=== PATIENT | female | born 1950 | race Caucasian/White ===

== ENCOUNTER 2024-02-11 10:49 | Inpatient (IN) | payer MEDICARE, SELFPAY ==
[2024-02-11] VITALS (19 sets, daily range): BP systolic 107–169; BP diastolic 65–106; PULSE 80–128; RESP 18–28; TEMP 36.1–37.9; O2SAT 89–98; BMI 18.6
--- NOTE | 2024-02-11 11:04 | ED.SOB ---
HPI - SOB/Dyspnea General Chief Complaint: Shortness of Breath/Dyspnea Stated Complaint: lung covid since october, can't get better Time Seen by Provider: 02/11/24 10:59 History of Present Illness HPI Narrative: Patient is a 73-year-old female who has history of non-Hodgkin's lymphoma treated with chemo in remission, celiac disease, connective tissue disease, was diagnosed with COVID in October. She thinks that she has long COVID. She has never fully recovered. She has daily fevers up to 100.8. She is hypoxic with exertion she has a pulse oximeter at home and reports that she has 89% with exertion. She reports that she has muscle wasting chronic fatigue she is lost weight. She has been on 2 rounds of antibiotics azithromycin and amoxicillin separately reports she got a little better but never fully recovered. He has been [place] [facility] handful of times. Today she reports that her fatigue is worse she continues to have fever she is mild hypoxic at 90% in the ED. Denies that any CT scan was done for her. She denies any abdominal pain nausea or vomiting. She has no chest pain. Z-Vinay and prednisone started on January 26 Related Data Home Medications Medication Instructions Recorded Confirmed hydroxychloroquine 200 mg tablet 300 mg PO DAILY 02/11/24 02/11/24 Allergies Allergy/AdvReac Type Severity Reaction Status Date / Time meperidine [From Demerol] Allergy Rash Verified 02/11/24 13:05 Sulfa (Sulfonamide Allergy Rash Verified 02/11/24 13:05 Antibiotics) Patient History Medical History (Updated 02/11/24 @ 17:32 by Gloria Hyde RN) Ribs, multiple fractures COPD (chronic obstructive pulmonary disease) Non-Hodgkin lymphoma Adult celiac disease COVID Mixed connective tissue disease Social History household members: family and children Smoking Status: Never smoker alcohol intake: never substance use type: does not use Exam Initial Vital Signs Initial Vital Signs: Vital Signs Pulse Oximetry 89 L 02/11/24 10:56 Oxygen Delivery Method Room Air 02/11/24 10:56 GENERAL: Thin alert 73-year-old female HEENT: Head atraumatic,EOMI, pupils reactive, face symmetric, moist mucous membranes CARDIOVASCULAR: Tachycardic regular no murmur RESPIRATORY: No conversational dyspnea no wheezes rales or rhonchi ABDOMEN: Soft, nontender. Normoactive bowel sounds all 4 quadrants. No guarding or rebound. EXTREMITIES: Normal range of motion, no clubbing or edema. Neurovascularly intact NEUROLOGICAL: Alert and oriented x4.Normal gait and speech. SKIN: Warm, dry, no laceration, no petechiae, no rashes or lesions. Course Orders Ordered: ED Orders 02/11/24 11:04 XR chest 1V Stat EKG-12 Lead Stat 02/11/24 11:17 Respiratory Panel (Film Array) Stat 02/11/24 11:18 BNP [NT-proBNP (BNP-Adult 18+)] Stat Complete Blood Count AUTO DIFF Stat Comprehensive Metabolic Panel Stat Lactate (Lactic Acid) Stat Procalcitonin Stat Troponin & CK Cardiac Panel Stat 02/11/24 11:27 CT angio chest PE protocol Stat 02/11/24 12:00 Sputum Culture Stat 02/11/24 12:07 Blood Culture Stat 02/11/24 13:45 Urinalysis and Microscopic Stat Acetaminophen (Acetaminophen 325 Mg Tablet) 650 mg PO Q6H PRN PRN Reason: Fever/Mild Pain (1-3) Last Admin: 02/11/24 16:20 Dose: 650 mg Documented By: FARIHA Albuterol (Albuterol 2.5 Mg/3 Ml Neb (Adult)) 2.5 mg INH [id number] VERONICA Last Admin: 02/11/24 16:43 Dose: 2.5 mg Documented By: LORI Albuterol (Albuterol 2.5 Mg/3 Ml Neb (Adult)) 2.5 mg INH [id number] PRN PRN Reason: Shortness Of Breath Budesonide (Budesonide 0.5 Mg/2 Ml Neb) 0.5 mg INH RTBID VERONICA Enoxaparin Sodium (Enoxaparin 40 Mg/0.4 Ml Syringe) 40 mg SUBCUT DAILY [facility] Guaifenesin (Guaifenesin Er 600 Mg Tab) 600 mg PO BID VERONICA Last Admin: 02/11/24 16:21 Dose: 600 mg Documented By: FARIHA Guaifenesin/Codeine Phosphate (Codeine/Guaifenesin Liquid 5ml Udc) 10 ml PO Q6H PRN PRN Reason: Cough Last Admin: 02/11/24 16:20 Dose: 10 ml Documented By: FARIHA Ceftriaxone Sodium 1,000 mg/ (Sodium Chloride) 100 mls @ 200 mls/hr IV Q24H VERONICA Stop: 02/16/24 12:59 Azithromycin 500 mg/ Dextrose 250 mls @ 250 mls/hr IV Q24H VERONICA Stop: 02/14/24 13:59 Naloxone HCl (Naloxone 0.4 Mg/Ml Vial) 0.2 mg IV Q2MIN PRN PRN Reason: Opiate Reversal Ondansetron HCl (Ondansetron 4 Mg/2 Ml Inj) 4 mg IV Q4HR PRN PRN Reason: Nausea And Vomiting Last Admin: 02/11/24 16:28 Dose: 4 mg Documented By: FARIHA Prednisone (Prednisone 20 Mg Tablet) 40 mg PO DAILY [facility] Stop: 02/16/24 08:59 Discontinued Medications Sodium Chloride (Normal Saline 0.9%) 1,524.06 mls @ 508.02 mls/hr 30 ml/kg infuse over 3 hr (1524.06 ml) IV NOW ONE Stop: 02/11/24 14:26 Last Infusion: 02/11/24 13:40 Dose: Infused Documented By: Admin: 02/11/24 11:32 Dose: 508.02 mls/hr Documented By: Ceftriaxone Sodium 2,000 mg/ (Sodium Chloride) 100 mls @ 200 mls/hr IV NOW ONE Stop: 02/11/24 13:01 Last Infusion: 02/11/24 14:04 Dose: Infused Documented By: Admin: 02/11/24 13:09 Dose: 200 mls/hr Documented By: Azithromycin 500 mg/ Dextrose 250 mls @ 250 mls/hr IV NOW ONE Stop: 02/11/24 13:01 Last Infusion: 02/11/24 15:22 Dose: Infused Documented By: Admin: 02/11/24 14:12 Dose: 250 mls/hr Documented By: KERRY Ondansetron HCl (Ondansetron 4 Mg/2 Ml Inj) 4 mg IV Q8HR PRN PRN Reason: Nausea And Vomiting Prednisone (Prednisone 20 Mg Tablet) 40 mg PO NOW ONE Stop: 02/11/24 15:51 Last Admin: 02/11/24 16:21 Dose: 40 mg Documented By: FARIHA Vital Signs Vital signs: Vital Signs - 8 hr 02/11/24 10:56 02/11/24 10:57 02/11/24 10:57 Temperature Pulse Rate 124 H Respiratory Rate Blood Pressure 140/88 Pulse Oximetry 89 L 90 L Oxygen Delivery Method Room Air Room Air 02/11/24 11:00 02/11/24 11:00 02/11/24 11:08 Temperature 100.2 F H Pulse Rate 122 H 121 H Respiratory Rate 25 H Blood Pressure 153/93 H 140/88 Pulse Oximetry 93 90 L Oxygen Delivery Method Room Air Room Air 02/11/24 11:30 02/11/24 11:30 02/11/24 11:55 Temperature Pulse Rate 113 H 128 H Respiratory Rate 18 20 Blood Pressure 168/87 H 146/106 H Pulse Oximetry 93 94 Oxygen Delivery Method Room Air 02/11/24 12:00 02/11/24 12:00 02/11/24 12:34 Temperature Pulse Rate 116 H 116 H Respiratory Rate 20 Blood Pressure 160/85 H Pulse Oximetry 94 95 Oxygen Delivery Method 02/11/24 12:35 02/11/24 12:35 02/11/24 13:00 Temperature Pulse Rate 115 H Respiratory Rate 20 Blood Pressure 145/81 H 169/92 H Pulse Oximetry 94 Oxygen Delivery Method 02/11/24 13:00 02/11/24 13:30 02/11/24 13:30 Temperature Pulse Rate 107 H 113 H Respiratory Rate 21 21 Blood Pressure 160/91 H Pulse Oximetry 96 94 Oxygen Delivery Method 02/11/24 13:42 02/11/24 13:42 02/11/24 14:00 Temperature Pulse Rate 122 H 117 H Respiratory Rate 28 H 20 Blood Pressure 155/89 H Pulse Oximetry 90 L 93 Oxygen Delivery Method 02/11/24 14:00 Temperature Pulse Rate Respiratory Rate Blood Pressure 152/91 H Pulse Oximetry Oxygen Delivery Method MDM - SOB/Dyspnea Lab Data 02/11/24 11:18 02/11/24 11:18 Labs: Lab Results 02/11/24 02/11/24 02/11/24 Range/Units 11:17 11:18 13:45 WBC 14.3 H (4.5-11.0) X10^3/uL RBC 3.38 L (4.0-5.2) X10^6/uL Hgb 10.2 L (12.0-16.0) g/dL Hct 30.5 L (36-46) % MCV 90.1 (80-100) fL MCH 30.2 (26-34) PG MCHC 33.5 (30-36) % RDW 16.0 H (11.6-14.8) % Plt Count 963 H* (150-400) X10^3/uL Neut % (Auto) 76.5 H (50-75) % Lymph % (Auto) 14.9 L (25-40) % [place] % (Auto) 7.0 (3-14) % Eos % (Auto) 0.1 L (2-4) % Baso % (Auto) 1.5 (0-2) % Neut # (Auto) 68239 H (8252-4632) /uL Lymph # (Auto) 2100 (0463-5684) /uL Avery # (Auto) 1000 H (0-900) /uL Eos # (Auto) 0 (0-450) /uL Baso # (Auto) 200 H (0-100) /uL Platelet Estimate Increased on smear RBC Morphology Normal morphology Sodium 132 L (137-145) mmol/L Potassium 3.9 (3.4-5.1) mmol/L Chloride 97 L (98-107) mmol/L Carbon Dioxide 28 (22-32) mmol/L BUN 7 (7-17) mg/dL Creatinine 0.51 L (0.52-1.04) mg/dL Estimated GFR > 60 (>60) mL/min BUN/Creatinine Ratio 13.7 (6-22) Glucose 131 H (80-110) mg/dL Lactate 1.3 (0.7-2.1) mmol/L Calcium 8.9 (8.4-10.2) mg/dL Total Bilirubin 0.7 (0.2-1.3) mg/dL AST 31 (14-36) IU/L ALT 20 (<35) IU/L Alkaline Phosphatase 148 H (38-126) U/L Total Creatine Kinase 40 (30-135) U/L Troponin I < 0.012 (0.01-0.034) ng/mL NT-Pro-B Natriuret Pep 131 H (<125) pg/mL Total Protein 7.2 (6.3-8.2) g/dL Albumin 3.9 (3.5-5.0) g/dL Globulin 3.3 (1.7-4.1) g/dL Albumin/Globulin Ratio 1.2 (1.0-2.8) Procalcitonin 0.126 (<0.5) ng/mL Urine Color Yellow Urine Appearance Clear Urine pH 8.0 (4.5-8.0) Ur Specific [place] 1.015 (1.000-1.035) Urine Protein Negative (Negative) Urine Glucose (UA) Negative (Negative) g/dL Urine Ketones Trace H (NEGATIVE) Urine Occult Blood Negative (Negative) Urine Nitrate Negative (Negative) Urine Bilirubin Negative (NEGATIVE) Urine Urobilinogen 0.2 (0.2) E.U./dL Ur Leukocyte Esterase Negative (NEGATIVE) Urine RBC None seen (0-5/HPF) Urine WBC None seen (0-5/HPF) Ur Squamous Epith Cells None seen (0-5/HPF) Amorphous Sediment 3+ Urine Bacteria Occasional (0-1) (None) Ur Culture Indicated? Cult not indicated Vol Urine Centrifuged 10ml (spun) Chlamy pneumoniae PCR Not detected (Not Detect) Adenovirus (PCR) Not detected (Not Detect) B.parapertussis DNA PCR Not detected (Not Detecte) Coronavirus OC43 (PCR) Not detected (Not Detect) Coronavirus HKU1 (PCR) Not detected (Not Detect) Coronavirus 229E (PCR) Not detected (Not Detect) SARS-CoV-2 (PCR) Not detected (Not Detecte) Coronavirus NL63 (PCR) Not detected (Not Detect) Human Metapneumovir PCR Detected H (Not Detect) Influenza Type A (PCR) Not detected (Not Detect) Influenza Type B (PCR) Not detected (Not Detect) M. pneumoniae (PCR) Not detected (Not Detect) Parainfluenza 1 (PCR) Not detected (Not Detect) Parainfluenza 2 (PCR) Not detected (Not Detect) Parainfluenza 3 (PCR) Not detected (Not Detect) Parainfluenza 4 (PCR) Not detected (Not Detect) RSV (PCR) Not detected (Not Detect) Entero/Rhino (PCR) Not detected (Not Detect) Urine Dip Bedside Urine Glucose Negative Bedside Urine Bilirubin - Negative Bedside Urine Ketone - Negative Urine Specific [place] 1.010 Bedside Urine Occult Blood - Negative Bedside Urine pH 8.5 Bedside Urine Protein - Negative Bedside Urine Urobilinogen - Negative Bedside Urine Nitrite - Negative Bedside Urine Leukocytes - Negative Esterase Imaging Data Chest x-ray: Radiologist's Impression: PROCEDURE: XR CHEST 1V INDICATIONS: cough TECHNIQUE: One view of the chest was acquired. COMPARISON: None. FINDINGS: Surgical changes and devices: None. Lungs and pleura: Patchy bibasilar lung consolidation. No pleural effusions or pneumothorax. Mediastinum: Mediastinal contours appear normal. Heart size is normal. Bones and chest wall: No suspicious bony lesions. Overlying soft tissues appear unremarkable. IMPRESSION: Bibasilar pneumonia. Dictated by: Ysabel Christianson MD, PhD on 02/11/2024 at 12:04 CT scan - chest: Radiologist's Impression: PROCEDURE: CT ANGIO CHEST PE PROTOCOL INDICATIONS: hypoxia fever TECHNIQUE: After the administration of intravenous contrast, 2 mm thick sections acquired from the pulmonary apices to the posterior costophrenic angles. 3-dimensional maximum intensity projection (MIP) coronal and sagittal reformats were then acquired through the thorax. For radiation dose reduction, the following was used: automated exposure control, adjustment of mA and/or kV according to patient size. COMPARISON: None. FINDINGS: Image quality: Diagnostic. Pulmonary arteries: Pulmonary arteries are normal in size, and demonstrate no intraluminal filling defects to suggest central pulmonary embolism. Lower Neck: No enlarged lymph nodes. Thyroid: No thyroid nodules which require sonographic follow up, per consensus guidelines. Axillae: No enlarged lymph nodes. Chest Wall: Unremarkable. Bones: Spine degenerative disc disease and facet arthropathy. Chronic T10, T11 and T12 compression fractures. No acute compression fracture. Schmorl's nodes in the superior endplates of the T7 and T9 vertebral bodies. Subacute anterior right 3rd, 4th, 5th and 6th rib fractures. Lungs and Pleura: No pneumothorax or pleural effusions. Patchy bibasilar lung consolidation. A few small air-fluid levels identified in several left lower lobe bronchials. Heart: Heart size is normal. Atherosclerotic calcifications in the coronary vasculature. No pericardial effusion. Thoracic Vessels: No aortic aneurysm. Mediastinum and Ruthann: No enlarged lymph nodes. Esophagus: No wall thickening. No hiatal hernia. Upper Abdomen: No acute disease process in the visualized abdomen. Coarse right adrenal calcifications which could be related to prior hemorrhage or infection. IMPRESSION: No pulmonary embolus or aortic dissection. Bibasilar pneumonia or aspiration. Mildly enlarged bilateral hilar and mediastinal lymph nodes which could be reactive or neoplastic. Subacute right 3rd, 4th, 5th and 6th rib fractures. Dictated by: Ysabel Christianson MD, PhD on 02/11/2024 at 12:58 Approved by: Ysabel Christianson MD, PhD on 02/11/2024 at 13:0 ECG Data Attestation: I personally reviewed and interpreted this ECG as follows: Prior ECG tracings: not available for review Interpretation: Sinus tachycardia rate 115 MO interval 130 QRS [address] changes MDM Narrative Medical decision making narrative: MDM CC: Fever Complicating co-morbidities: History of non-Hodgkin's lymphoma Corroborating data: [ ] Data collected from: [ ] Medical records reviewed: All records from would be walk-in clinic reviewed. She is noted to be tachycardic in the 118 range oxygen level is 95-97% on room air. She has been on azithromycin in December Differential considered: Pulmonary embolism pneumonia cancer Exam documented above, pertinent findings include: Thin female no conversational dyspnea or respiratory distress tachycardic breath sounds are clear Lab Test results independently reviewed as above. Pertinent findings: WBC 14.3 hemoglobin 10.2, 30.5, platelets 963, sodium 132 potassium 3.9 chloride 97 carbon dioxide 28 BUN 7 creatinine 0.5 glucose 131 lactate 1.3, bili 0.7, AST 31, ALT 20 alk-phos 148, troponin negative BNP 131, procalcitonin 0.16 Viral panel positive for human metapneumovirus Independently reviewed EKG as above sinus tachycardia Imaging studies independently reviewed: Chest x-ray shows bibasilar pneumonia, CT no pulmonary embolism with enlarged lymph nodes could be reactive versus neoplastic, also multiple subacute rib fractures Consultations: Dr. Marley, in ED dizzy and evaluate patient admits patient Treatments: IV fluids, Rocephin azithromycin, sepsis fluids Re-evaluations: Heart rate has improved at rest she has not hypoxic not requiring O2 but remains tachycardic Discussion: Patient presents today with ongoing fever shortness of breath and worsening symptoms. She again is febrile hypoxic and tachycardic here in the ED. She is positive for human metapneumovirus along with bibasilar pneumonia on both on CT and x-ray. She is not hypotensive no evidence of shock. She does have mild leukocytosis 14.3 with elevated platelets of 963. Patient has been on outpatient antibiotics but not combination of penicillin and a macrolide together. She has been on prednisone she has history of asthma and possibly long COVID. She has not yet been evaluated by pulmonology or any other position. At this time with ongoing pneumonia fever tachycardia exertional dyspnea Admitted to inpatient. Discharge Plan Departure Patient Disposition: Admitted As Inpatient Clinical Impression: Pneumonia Admit Date/Time: 02/11/24 14:14 Admit Provider: Hero Marley
--- NOTE | 2024-02-11 11:27 | DI.CT.S_ITS ---
PROCEDURE: CT ANGIO CHEST PE PROTOCOL INDICATIONS: hypoxia fever TECHNIQUE: After the administration of intravenous contrast, 2 mm thick sections acquired from the pulmonary apices to the posterior costophrenic angles. 3-dimensional maximum intensity projection (MIP) coronal and sagittal reformats were then acquired through the thorax. For radiation dose reduction, the following was used: automated exposure control, adjustment of mA and/or kV according to patient size. COMPARISON: None. FINDINGS: Image quality: Diagnostic. Pulmonary arteries: Pulmonary arteries are normal in size, and demonstrate no intraluminal filling defects to suggest central pulmonary embolism. Lower Neck: No enlarged lymph nodes. Thyroid: No thyroid nodules which require sonographic follow up, per consensus guidelines. Axillae: No enlarged lymph nodes. Chest Wall: Unremarkable. Bones: Spine degenerative disc disease and facet arthropathy. Chronic T10, T11 and T12 compression fractures. No acute compression fracture. Schmorl's nodes in the superior endplates of the T7 and T9 vertebral bodies. Subacute anterior right 3rd, 4th, 5th and 6th rib fractures. Lungs and Pleura: No pneumothorax or pleural effusions. Patchy bibasilar lung consolidation. A few small air-fluid levels identified in several left lower lobe bronchials. Heart: Heart size is normal. Atherosclerotic calcifications in the coronary vasculature. No pericardial effusion. Thoracic Vessels: No aortic aneurysm. Mediastinum and Ruthann: No enlarged lymph nodes. Esophagus: No wall thickening. No hiatal hernia. Upper Abdomen: No acute disease process in the visualized abdomen. Coarse right adrenal calcifications which could be related to prior hemorrhage or infection. IMPRESSION: No pulmonary embolus or aortic dissection. Bibasilar pneumonia or aspiration. Mildly enlarged bilateral hilar and mediastinal lymph nodes which could be reactive or neoplastic. Subacute right 3rd, 4th, 5th and 6th rib fractures. Dictated by: Ysabel Christianson MD, PhD on 02/11/2024 at 12:58 Approved by: Ysabel Christianson MD, PhD on 02/11/2024 at 13:05
[2024-02-11 11:30] LABS: Add Manual Diff / Slide Review NO; Basophils Absolute Auto 200 /uL (0-100); Basophils Percent Auto 1.5 % (0-2); Eosinophils Absolute Auto 0 /uL (0-450); Eosinophils Percent Auto 0.1 % (2-4); Hematocrit 30.5 % (36-46); Hemoglobin 10.2 g/dL (12.0-16.0); Lymphocytes Absolute Auto 2100 /uL (1100-4500); Lymphocytes Percent Auto 14.9 % (25-40); Mean Corpuscular HGB Conc 33.5 % (30-36); Mean Corpuscular Hemoglobin 30.2 PG (26-34); Mean Corpuscular Volume 90.1 fL (80-100); Monocytes Absolute Auto 1000 /uL (0-900); Neutrophils Absolute Auto 10900 /uL (1500-7000); Neutrophils Percent Auto 76.5 % (50-75); Red Blood Cell Count 3.38 X10^6/uL (4.0-5.2); White Blood Cell Count 14.3 X10^3/uL (4.5-11.0)
[2024-02-11 11:31] LABS: Platelet Count 963 X10^3/uL (150-400)
--- NOTE | 2024-02-11 11:31 | EKG_ITS ---
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
[2024-02-11] MEDS: SODIUM CHLORIDE 0.9% 508.02 ML IV (11:32)
[2024-02-11 11:54] LABS: Lactate (Lactic Acid) 1.3 mmol/L (0.7-2.1)
[2024-02-11 11:55] LABS: Alanine Aminotransferase 20 IU/L (<35); Albumin 3.9 g/dL (3.5-5.0); Albumin Globulin Ratio 1.2 (1.0-2.8); Alkaline Phosphatase 148 U/L (38-126); Aspartate Aminotransferase 31 IU/L (14-36); BUN Creatinine Ratio 13.7 (6-22); Bilirubin Total 0.7 mg/dL (0.2-1.3); Blood Urea Nitrogen 7 mg/dL (7-17); Calcium 8.9 mg/dL (8.4-10.2); Carbon Dioxide 28 mmol/L (22-32); Chloride 97 mmol/L (98-107); Creatine Kinase 40 U/L (30-135); Estimated Glomerular Filt Rate > 60 mL/min (>60); Globulin 3.3 g/dL (1.7-4.1); Glucose 131 mg/dL (80-110); HEMOLYSIS < 15 (0-50); Potassium 3.9 mmol/L (3.4-5.1); Sodium 132 mmol/L (137-145); Total Protein 7.2 g/dL (6.3-8.2)
[2024-02-11 12:07] LABS: NT-proBNP (BNP-Adult 18+) 131 pg/mL (<125); Troponin I < 0.012 ng/mL (0.01-0.034)
[2024-02-11 12:11] LABS: Procalcitonin 0.126 ng/mL (<0.5)
[2024-02-11 12:12] LABS: Platelet Estimate Increased on smear; RBC Morphology Normal Morphology
[2024-02-11 12:17] LABS: Adenovirus Not Detected (Not Detect); B. parapertussis Not Detected (Not Detecte); Bordetella pertussis Not Detected (Not Detect); Chlamydophila pneumoniae Not Detected (Not Detect); Coronavirus 229E Not Detected (Not Detect); Coronavirus HKU1 Not Detected (Not Detect); Coronavirus NL 63 Not Detected (Not Detect); Coronavirus OC43 Not Detected (Not Detect); Human Metapneumovirus Detected (Not Detect); Human Rhinovirus/Enterovirus Not Detected (Not Detect); Influenza A Not Detected (Not Detect); Influenza B Not Detected (Not Detect); Mycoplasma pneumoniae Not Detected (Not Detect); Parainfluenza Virus 1 Not Detected (Not Detect); Parainfluenza Virus 2 Not Detected (Not Detect); Parainfluenza Virus 3 Not Detected (Not Detect); Parainfluenza Virus 4 Not Detected (Not Detect); Respiratory Syncytial Virus Not Detected (Not Detect); SARS- CoV-2 Not Detected (Not Detecte)
[2024-02-11] MEDS: cefTRIAXone 2,000 MG in SODIUM CHLORIDE 0.9% 100 ML 200 MG IV (13:09)
[2024-02-11 13:56] LABS: Appearance Urine UA CLEAR; Bilirubin Urine UA NEGATIVE (NEGATIVE); Color Urine UA YELLOW; Glucose Urine UA NEGATIVE (Negative); Ketones Urine UA TRACE (NEGATIVE); Leukocyte Esterase Urine UA NEGATIVE (NEGATIVE); Nitrite Urine UA NEGATIVE (Negative); Occult Blood Urine UA NEGATIVE (Negative); Protein Urine UA NEGATIVE (Negative); Specific Gravity Urine UA 1.015 (1.000-1.035); Urobilinogen Urine UA 0.2 E.U./dL (0.2)
[2024-02-11] MEDS: AZITHROMYCIN 500 MG in DEXTROSE 5% IN WATER 250 ML 250 MG IV (14:12)
[2024-02-11 14:13] LABS: RBC Urine None Seen (0-5/HPF); Urine Volume 10mL (spun); WBC Urine None Seen (0-5/HPF)
[2024-02-11 14:14] LABS: Amorphous Sediment Urine 3+; Bacteria Urine Occasional (0-1); Culture Indicated Urine Cult Not Indicated; Squamous Epithelial Cell Urine None Seen (0-5/HPF)
--- NOTE | 2024-02-11 14:26 | PM.HP.1 ---
History of Present Illness History of Present Illness Date Patient Seen: 02/11/24 Time Patient Seen: 14:26 Chief complaint: lung covid since october, can't get better Narrative: This is a 73 year old female with PMH of mixed connective tissue disease, non-hodgkins lymphoma who presents to the ER with worsening dyspnea on exertion. Her symptoms have been ongoing for about the past 3-4 months. She thinks it started with an upper respiratory illness a few months ago, which never improved and has only continued to progress. She never tested positive for COVID that she remembers. 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 She reports ongoing fever for months, but no joint swelling, chest pain. She does feel a bit worse lying flat. Denies LE edema. She has lost about 10 lbs recently due to loss of appetite and nausea. She has been coughing so hard that she broke multiple ribs on her R side. There is little change in her cough, maybe a bit worse the last few days, and remains constant and producitve of light green sputum intermittently. She denies any pets in her home or previously known allergies. She may have mold in her home but is not sure. In the emergency room, she desaturated to the upper 90s with exertion, which patient states has been somewhat chronic for her. She had low grade elevated temp to 100.2. CT angio showed no PE, some diffuse consolidations in bilateral lungs. Resp. panel was positive for human metapneumovirus. UA was negative for infection. Procalcitonin was 0.126, troponin negative, proBNP 131. ABG showed a respiratory alkalosis with pH of 7.54 with PCO2 of 27. pO2 was 77 on room air. [facility] Medical History Mixed connective tissue disease Social History household members: family and children Smoking Status: Never smoker alcohol intake: never substance use type: does not use Meds Home Medications and Allergies Home Medications Medication Instructions Recorded Confirmed Type hydroxychloroquine 200 mg tablet 300 mg PO DAILY 02/11/24 02/11/24 History Allergies Allergy/AdvReac Type Severity Reaction Status Date / Time meperidine [From Demerol] Allergy Rash Verified 02/11/24 13:05 Sulfa (Sulfonamide Allergy Rash Verified 02/11/24 13:05 Antibiotics) Review of Systems Review of Systems Narrative: All other systems reviewed with the patient and are negative unless otherwise stated. Exam Vital Signs (past 8 hours): - 02/11/24 10:56 02/11/24 10:57 02/11/24 10:57 Temperature Pulse Rate 124 H Respiratory Rate Blood Pressure 140/88 Pulse Oximetry 89 L 90 L Oxygen Delivery Method Room Air Room Air 02/11/24 11:00 02/11/24 11:00 02/11/24 11:08 Temperature 100.2 F H Pulse Rate 122 H 121 H Respiratory Rate 25 H Blood Pressure 153/93 H 140/88 Pulse Oximetry 93 90 L Oxygen Delivery Method Room Air Room Air 02/11/24 11:30 02/11/24 11:30 02/11/24 11:55 Temperature Pulse Rate 113 H 128 H Respiratory Rate 18 20 Blood Pressure 168/87 H 146/106 H Pulse Oximetry 93 94 Oxygen Delivery Method Room Air 02/11/24 12:00 02/11/24 12:00 02/11/24 12:34 Temperature Pulse Rate 116 H 116 H Respiratory Rate 20 Blood Pressure 160/85 H Pulse Oximetry 94 95 Oxygen Delivery Method 02/11/24 12:35 02/11/24 12:35 02/11/24 13:00 Temperature Pulse Rate 115 H Respiratory Rate 20 Blood Pressure 145/81 H 169/92 H Pulse Oximetry 94 Oxygen Delivery Method 02/11/24 13:00 02/11/24 13:30 02/11/24 13:30 Temperature Pulse Rate 107 H 113 H Respiratory Rate 21 21 Blood Pressure 160/91 H Pulse Oximetry 96 94 Oxygen Delivery Method 02/11/24 13:42 02/11/24 13:42 Temperature Pulse Rate 122 H Respiratory Rate 28 H Blood Pressure 155/89 H Pulse Oximetry 90 L Oxygen Delivery Method Oxygen Delivery Method Room Air Narrative Exam Narrative: General:? Patient is thin, mildly ill appearing female, fatigued, mildly dyspnic and coughing. HEENT:? Normocephalic, atraumatic, extraocular muscles intact, oral pharynx is clear and mucous membranes are moist. Neck: supple and symmetric, trachea is midline, no cervical adenopathy. Chest:? Normal AP diameter and contour without kyphoscoliosis, no tachypnea, equal chest rise bilaterally. Lungs:? RLL rhonchi, no wheezing. Otherwise CTA b/l. Cardio:?RRR no m/r/g. Abdomen: S NT ND. Musculoskeletal:? Muscle strength and tone are equal within normal limits, no deformity. Extremities: No edema or joint effusions. No cyanosis or clubbing. Some arthritic changes of bilateral hands. Skin:? Pale,? Warm to touch,dry and intact without rashes, ulcerations or petechiae.? Neuro:? Alert and orientated x3,? sensation to touch intact in all extremities, no gross deficits noted of cranial nerves. Psych:? Patient has a well-kept appearance, appropriate affect, mental status attitude thought context and judgment are appropriate for age. Objective ECG Impression: Sinus tachycardia, no acute ischemia Labs 02/11/24 11:18 02/11/24 11:18 Labs: Laboratory Results - last 24 hr 02/11/24 02/11/24 02/11/24 11:17 11:18 13:45 WBC 14.3 H RBC 3.38 L Hgb 10.2 L Hct 30.5 L MCV 90.1 MCH 30.2 MCHC 33.5 RDW 16.0 H Plt Count 963 H* Neut % (Auto) 76.5 H Lymph % (Auto) 14.9 L [place] % (Auto) 7.0 Eos % (Auto) 0.1 L Baso % (Auto) 1.5 Neut # (Auto) 46385 H Lymph # (Auto) 2100 [place] # (Auto) 1000 H Eos # (Auto) 0 Baso # (Auto) 200 H Platelet Estimate Increased on smear RBC Morphology Normal morphology Sodium 132 L Potassium 3.9 Chloride 97 L Carbon Dioxide 28 BUN 7 Creatinine 0.51 L Estimated GFR > 60 BUN/Creatinine Ratio 13.7 Glucose 131 H Lactate 1.3 Calcium 8.9 Total Bilirubin 0.7 AST 31 ALT 20 Alkaline Phosphatase 148 H Total Creatine Kinase 40 Troponin I < 0.012 NT-Pro-B Natriuret Pep 131 H Total Protein 7.2 Albumin 3.9 Globulin 3.3 Albumin/Globulin Ratio 1.2 Procalcitonin 0.126 Urine Color Yellow Urine Appearance Clear Urine pH 8.0 Ur Specific [place] 1.015 Urine Protein Negative Urine Glucose (UA) Negative Urine Ketones Trace H Urine Occult Blood Negative Urine Nitrate Negative Urine Bilirubin Negative Urine Urobilinogen 0.2 Ur Leukocyte Esterase Negative Urine RBC None seen Urine WBC None seen Ur Squamous Epith Cells None seen Amorphous Sediment 3+ Urine Bacteria Occasional (0-1) Ur Culture Indicated? Cult not indicated Vol Urine Centrifuged 10ml (spun) Chlamy pneumoniae PCR Not detected Adenovirus (PCR) Not detected B.parapertussis DNA PCR Not detected Coronavirus OC43 (PCR) Not detected Coronavirus HKU1 (PCR) Not detected Coronavirus 229E (PCR) Not detected SARS-CoV-2 (PCR) Not detected Coronavirus NL63 (PCR) Not detected Human Metapneumovir PCR Detected H Influenza Type A (PCR) Not detected Influenza Type B (PCR) Not detected M. pneumoniae (PCR) Not detected Parainfluenza 1 (PCR) Not detected Parainfluenza 2 (PCR) Not detected Parainfluenza 3 (PCR) Not detected Parainfluenza 4 (PCR) Not detected RSV (PCR) Not detected Entero/Rhino (PCR) Not detected Assessment & Plan Assessment & Plan narrative: 1. Acute respiratory failure with hypoxia on exertion - likely multifactorial but subacute nature and progressive symptoms suggestive of a possible autoimmune component. - Discussed with jigger operator to supplement the plan noted below. Soil Engineer recommended outpatient referral after above treatments for ongoing management. - continue antibiotics with ceftriaxone and azithromycin (first doses in the ER) for presumed superimposed pneumonia, steroids with prenisone 40 mg PO daily for possible COPD exacerbation. - send autoimmune workup with ESR, CRP, CK, ANCA, Scl-70, and MOHIT for now. Consider myositis panel. - echocardiogram to see if pulmonary HTN or component of heart failure. 2. Community acquired pneumonia, bacterial, bilateral lower lobes - continue ceftriaxone x 5 days and azithromycin for 3days. - PSI score elevated, class IV risk with connective tissue disease and lymphoma. 3. Human metapneumovirus. - supportive care with cough syrup and guaifenecin. 4. Mixed connective tissue disease - continue home hydroxychloroquine, steroids given as noted above. 5. Presumed obstructive lung disease / COPD with exacerbation - prednisone 40 mg daily x 5 days - Goal O2 89-96% if on supplemental therapy. - ABG showed respiratory alkalosis on admission. 6. Weight loss, concern for malnutrition 7. History of non-hodgkin lymphoma 8. Thrombocytosis - suspect reactive, will continue to follow. Code: Full, surrogate is patient's son DVT: Lovenox daily I have utilized all available immediate resources to obtain, update, or review the patient's current medications. Dispo: patient admitted under inpatient status due to elevated PSI score (class IV risk), new diagnosis of hypoxia, and anticipated length of stay beyond two midnights. Anticipate discharge home, after above evaluation. Additional history obtained via discussions with the ER provider and daughter in law. These discussions contributed to the creation of the above assessment and plan. I have reviewed patient's presenting documentation, labs, and imaging personally.
[2024-02-11 15:09] LABS: Base Excess ABG 1.3 mmol/L (-2-3); HCO3 ABG 23 mmol/L (23-27); PCO2 ABG 27.1 mmHg (35-45); PO2 ABG 77 mmHg (80-100); TCO2 ABG 23 mmol/L (23-27); pH ABG 7.54 (7.35-7.45)
[2024-02-11 15:10] LABS: Allen Test for ABG Passed? Yes, Passed; Blood Gas Collection Site Right Brachial; Fractionated Inspired Oxygen 21; Oxygen Saturation ABG 97 % (95-100)
--- NOTE | 2024-02-11 15:52 | DI.ECHO.S_ITS ---
[facility] +---------+ [facility] : : [address] : [address] : : [id number] : : Phone: [phone] Echocardiogram Report + + :Name: RAYRAY TANG Study Date: 02/12/2024 Height: 65 in : :Hospital ReadingLocation: Weight: 112 lb : : Gender: Female BSA: 1.5 m2 : :: 1950 Age: 73 yrs BP: 141/79 mmHg: :Reason For Study: DYSPNEA ON EXERTION : :Ordering Physician: DRAGAN, : :RAFITA DELGADO Performed By: Emily Gilman : :Referring: RAFITA ARCHIBALD : + + Interpretation Summary The left ventricle is normal in size and wall thickness. The left ventricular ejection fraction is normal. The ejection fraction is estimated to be 60-65%. The right ventricle is normal in size and function. There is mild mitral regurgitation. The IVC is of normal diameter and collapses greater than 50% with a sniff. This suggests a low right atrial pressure of 3 mm Hg. Procedure: A two-dimensional transthoracic echocardiogram with color flow and Doppler was performed. The study quality was technically adequate. There is no prior echocardiogram noted for this patient. The patient was in sinus rhythm with heart rates between 83-87 bpm during the exam. Left Ventricle: The left ventricle is normal in size and wall thickness. There is no thrombus. The ejection fraction is estimated to be 60-65%. The left ventricular ejection fraction is normal. There are no focal wall motion abnormalities. Diastolic parameters suggest a relaxation abnormality of the left ventricle, consistent with probable normal filling pressures. Right Ventricle: The right ventricle is normal in size and function. Atria: The left atrial size is normal. Right atrial size is normal. linear artifact in the right atrium. There is no Doppler evidence for an interatrial shunt. Mitral Valve: There is mild mitral annular calcification. There is mild mitral regurgitation. Aortic Valve: The aortic valve is trileaflet. The aortic valve opens well. The aortic valve is slightly calcified. There is no aortic valve stenosis. There is trace aortic regurgitation. Tricuspid Valve: The tricuspid valve is normal in structure and function. There is trace tricuspid regurgitation. Pulmonary artery pressures cannot be estimated because of the lack of a measurable TR jet velocity. Pulmonic Valve: The pulmonic valve is not well visualized. There is no pulmonic valvular regurgitation. Great Vessels: The aortic root is normal size. The dimensions of the ascending aorta are normal. The IVC is of normal diameter and collapses greater than 50% with a sniff. This suggests a low right atrial pressure of 3 mm Hg. Pericardium/ Pleura There is no pericardial effusion. There is no pleural effusion. MMode/2D Measurements & Calculations LVIDd: 4.9 cm LVOT diam: 2.0 cm LVIDs: 3.1 cm Ao root diam: 3.7 cm FS: 36.5 % asc Aorta Diam: 3.5 cm EPSS: 0.63 cm Ao Arch Diam (Prox Trans): 2.5 cm IVSd: 0.67 cm LVPWd: 0.60 cm LV lewis. diameter/BSA (cm/m^2): 3.2 LV sys. diameter/BSA (cm/m^2): 2.0 LA A2 area: 17.8 cm2 RA long axis: 4.7 cm LA A4 area: 12.7 cm2 RA area: 12.0 cm2 LA length (vol): 4.9 cm RA vol: 26.4 ml LA vol: 38.9 ml RA : 17.1 ml/m2 LA vol index: 25.2 ml/m2 IVC diam: 1.1 cm RVD1 (basal): 3.4 cm RVD2 (mid): 2.7 cm TAPSE: 2.6 cm Doppler Measurements & Calculations Ao V2 max: 155.4 cm/sec LVOT Max Sid: 144.3 cm/sec Ao V2 mean: 106.3 cm/sec LV V1 max P.3 mmHg Ao max P.7 mmHg LV V1 VTI: 23.1 cm Ao mean P.1 mmHg JUAN(I,D): 2.5 cm2 Ao V2 VTI: 28.3 cm JUAN(V,D): 2.9 cm2 sev ratio: 0.82 JUAN indexed to BSA (cm^2/m^2): 1.6 MV E max sid: 51.0 cm/sec PA V2 max: 88.1 cm/sec MV A max sid: 57.2 cm/sec PA V2 mean: 61.3 cm/sec MV E/A: 0.89 PA mean P.7 mmHg Med Peak E' Sid: 9.7 cm/sec PA pr(Accel): 31.0 mmHg E/E' med: 5.3 Lat Peak E' Sid: 13.5 cm/sec E/E' lat: 3.8 E/e' average: 4.5 MV dec time: 0.20 sec SV(LVOT): 72.2 ml Reading Physician:10:35 AM
[2024-02-11] MEDS: ACETAMINOPHEN 325 MG TABLET 650 MG PO ×2 (16:20→22:33)
[2024-02-11] MEDS: CODEINE/GUAIFENESIN LIQUID 5ML UDC 10 ML PO ×2 (16:20→22:34)
[2024-02-11] MEDS: guaiFENesin ER 600 MG TAB PO (16:21)
[2024-02-11] MEDS: predniSONE 20 MG TABLET 40 MG PO (16:21)
[2024-02-11] MEDS: ONDANSETRON 4 MG/2 ML INJ IV (16:28)
[2024-02-11] MEDS: ALBUTEROL 2.5 MG/3 ML NEB (ADULT) INH ×2 (16:43→22:37)
[2024-02-12] VITALS (8 sets, daily range): BP systolic 103–126; BP diastolic 61–80; PULSE 80–101; RESP 16–22; TEMP 36.1–36.5; O2SAT 91–96
[2024-02-12] MEDS: ALBUTEROL 2.5 MG/3 ML NEB (ADULT) INH ×6 (06:15→23:01)
[2024-02-12] MEDS: BUDESONIDE 0.5 MG/2 ML NEB INH ×2 (06:15→19:23)
[2024-02-12] MEDS: ACETAMINOPHEN 325 MG TABLET 650 MG PO (06:17)
[2024-02-12 06:56] LABS: C-Reactive Protein Quant 7.2 mg/dL (<1.0); Creatine Kinase 38 U/L (30-135)
[2024-02-12 06:58] LABS: Erythrocyte Sedimentation Rate 108 MM/HR (0-20)
[2024-02-12] MEDS: predniSONE 20 MG TABLET 40 MG PO (09:15)
[2024-02-12] MEDS: CODEINE/GUAIFENESIN LIQUID 5ML UDC 10 ML PO ×2 (09:16→15:41)
[2024-02-12] MEDS: guaiFENesin ER 600 MG TAB PO ×2 (09:16→20:25)
[2024-02-12] MEDS: ENOXAPARIN 40 MG/0.4 ML SYRINGE SUBCUT (09:16)
[2024-02-12 10:06] LABS: Add Manual Diff / Slide Review NO; Basophils Absolute Auto 100 /uL (0-100); Basophils Percent Auto 0.6 % (0-2); Eosinophils Absolute Auto 0 /uL (0-450); Hematocrit 27.8 % (36-46); Hemoglobin 9.2 g/dL (12.0-16.0); Lymphocytes Absolute Auto 2800 /uL (1100-4500); Lymphocytes Percent Auto 23.8 % (25-40); Mean Corpuscular Hemoglobin 30.3 PG (26-34); Mean Corpuscular Volume 91.6 fL (80-100); Monocytes Absolute Auto 400 /uL (0-900); Monocytes Percent Auto 3.6 % (3-14); Neutrophils Absolute Auto 8400 /uL (1500-7000); Platelet Count 820 X10^3/uL (150-400); Red Blood Cell Count 3.03 X10^6/uL (4.0-5.2); Red Cell Distribution Width 16.4 % (11.6-14.8); White Blood Cell Count 11.7 X10^3/uL (4.5-11.0)
[2024-02-12] MEDS: IBUPROFEN 600 MG TABLET PO (10:12)
[2024-02-12] MEDS: BENZOCAINE/MENTHOL 1 LOZ PKT 1 EACH PO ×3 (10:13→17:55)
[2024-02-12 10:20] LABS: BUN Creatinine Ratio 27.1 (6-22); Blood Urea Nitrogen 13 mg/dL (7-17); Calcium 8.4 mg/dL (8.4-10.2); Carbon Dioxide 28 mmol/L (22-32); Chloride 102 mmol/L (98-107); Estimated Glomerular Filt Rate > 60 mL/min (>60); Glucose 165 mg/dL (80-110); HEMOLYSIS < 15 (0-50); Potassium 3.7 mmol/L (3.4-5.1); Sodium 134 mmol/L (137-145)
[2024-02-12] MEDS: cefTRIAXone 1,000 MG in SODIUM CHLORIDE 0.9% 100 ML 200 MG IV (13:23)
--- NOTE | 2024-02-12 13:24 | CM.DANOTE ---
Brief DCP Assessment Note Pt is a 73yo F here with pneumonia/acute resp failure. PCP None listed. ( Rachelle Botello, [facility] Primary care??) Payer [employer] Medicare WINDCHILL ADMINISTRATOR reviewed EMR. Per chart review, pt lives with son Cuco and LASHAY in [place]. Pt had COVID a few months ago and reports feeling like she hasn't got better from there. Getting IV abx now. Pt is on room air in room as of 1330 On Sat02.12.24 Per RN report,pt is indep in room. Son and DIL have been at bedside/have been supportive during admission. RN reports likely no CM needs at this time. WINDCHILL ADMINISTRATOR unable to meet with pt today due to triaging needs. P: no identified barriers to safe dc home at this time. Son/DIL to transport when medically stable. CM team will continue to follow as needed. SARAH Sun Discharge Planning/Care Management CM Discharge Assessment Start: 02/12/24 13:21 Freq: Status: Active Protocol: Document 02/12/24 13:21 (Rec: 02/12/24 13:23 [id number]) Discharge Planning Assessment Assigned Track Machine Operator Repairer SARAH Sanchez DPOA/Assigned Designee Name ember [place] Contact Information [phone] Advance Directives? No History Provided By Patient Prior Living Arrangements House Household Members family,children Comment son and DIL Independent with ADL's Yes Is patient alert and oriented? Yes Barriers to Discharge No Discharge Plan Home Transportation Arrangement likely family in [place] Referrals Initiated None needed Whiteboard Updated in Patient Room with No name and ext. # of Track Machine Operator Repairer Review Status In Process Please Provide Date Initial DC 02/12/24 Assessment Was Performed Next Review Type Continued Stay Review
[2024-02-12] MEDS: AZITHROMYCIN 500 MG in DEXTROSE 5% IN WATER 250 ML 250 MG IV (14:27)
--- NOTE | 2024-02-12 14:36 | DIET.CONS ---
Dietary Consultation Note Admission Date: 02/11/2024 14:14 Assessment: 73 y F admitted for pneumonia/acute resp failure. Nutrition consulted for malnutrition/weight loss. Met w/ pt at bedside. Reports 10 lb weight loss in last month and abdominal distress over last 2-3 months. Her abdominal distress has since been reduced, but still has looser stools with white mucus in them. Diet recall last 2 weeks: 2 eggs, piece of cheese a few bite of chicken Usually has 3 meals plus 1-2 snack(s), but last 1-2 weeks has had increased difficulty with breathing and reduced help at home preparing meals. Lives with supportive family who will help with meal prep when d/c. Has been on gluten free diet for 30+ years. Nutrition focused physical exam: -Moderate muscle loss temporalis, deltoid, trapezius, pectoralis, interosseous, quadriceps, gastrocnemius -Moderate subcutaneous fat loss buccal and orbital fat pads, triceps Ht: 165.1 cm Wt: 50.802 kg BMI: 18.6 UBW: 54.1 kg end of December per pt (6% weight loss in 1 month, severe) Last BM: 02/10/24 (02/11/24 14:16) MNA: 6 Jonah Score: 21 Diet: 02/11/24 Dinner Gluten Free Diet Diet Modifications: Food Texture: Level 7 - Regular Liquid Consistency: Level 0 - Thin Nutrition Percent Meal Consumed 100% 02/12/24 09:13 Labs: RBC 3.03 X10^6/uL (4.0-5.2) L 02/12/24 09:46 Hgb 9.2 g/dL (12.0-16.0) L 02/12/24 09:46 Hct 27.8 % (36-46) L 02/12/24 09:46 Creatinine 0.48 mg/dL (0.52-1.04) L 02/12/24 09:46 Lactate 1.3 mmol/L (0.7-2.1) 02/11/24 11:18 NT-Pro-B Natriuret Pep 131 pg/mL (<125) H 02/11/24 11:18 Nutrition Diagnosis: Severe Acute Protein Calorie Malnutrition r/t decreased ability to consume adequate intake as evidenced by moderate muscle wasting (temporalis, deltoid, trapezius, pectoralis, interosseous, quadriceps, gastrocnemius), moderate subcutaneous fat loss (buccal and orbital fat pads, triceps), <50% of estimated energy needs for 2 weeks, severe, 6% weight loss in 1 month, severe, BMI 18.6 (underweight for age). The patient is at much higher risk for medical and surgical complications because of their malnutrition. This increases the difficulty and complexity of medical and surgical interventions and increases the chances of poor outcomes such as morbidity and mortality. Interventions: 1. Increased energy-protein intake -Provided educ on adequate energy/protein intake, convenient sources, and provided handout 2. ONS trial EER: 5423-4805 kcals (30-35 kcals/kg per BMI) 75 g protein (1.5 g/kg per malnutrition) Monitoring/Evaluations: po intakes, ons Electronically Signed by: Brittni Hammond 02/12/24 14:36 Clinical Dietitian [address] [address]
--- NOTE | 2024-02-12 14:41 | P.PN_ITS ---
Subjective Subjective Interval history: [place] a bit better overnight, but remains dyspnic with minimal activity though her cough is slightly improved. Exam Vital Signs (past 8 hours): - 02/12/24 08:00 02/12/24 11:51 Temperature 97.7 F Pulse Rate 91 H 92 H Respiratory Rate 18 20 Blood Pressure 112/68 Pulse Oximetry 93 94 Oxygen Delivery Method Room Air Fraction of Inspired Oxygen 21 Fraction of Inspired Oxygen 21 SaO2/FiO2 Ratio 447 Oxygen Delivery Method Room Air Oxygen Flow Rate 0 Narrative Exam Narrative: General:? Patient is thin, mildly ill appearing female, fatigued, mildly dyspnic and coughing. HEENT:? Normocephalic, atraumatic, extraocular muscles intact, oral pharynx is clear and mucous membranes are moist. Neck: supple and symmetric, trachea is midline, no cervical adenopathy. Chest:? Normal AP diameter and contour without kyphoscoliosis, no tachypnea, equal chest rise bilaterally. Lungs:? RLL rhonchi, no wheezing. Otherwise CTA b/l. Cardio:?RRR no m/r/g. Abdomen: S NT ND. Musculoskeletal:? Muscle strength and tone are equal within normal limits, no deformity. Extremities: No edema or joint effusions. No cyanosis or clubbing. Some arthritic changes of bilateral hands. Skin:? Pale,? Warm to touch,dry and intact without rashes, ulcerations or petechiae.? Neuro:? Alert and orientated x3,? sensation to touch intact in all extremities, no gross deficits noted of cranial nerves. Psych:? Patient has a well-kept appearance, appropriate affect, mental status attitude thought context and judgment are appropriate for age. Objective Labs 02/12/24 09:46 02/12/24 09:46 Labs: Laboratory Results - last 24 hr 02/11/24 02/12/24 02/12/24 14:53 06:15 09:46 WBC 11.7 H RBC 3.03 L Hgb 9.2 L Hct 27.8 L MCV 91.6 MCH 30.3 MCHC 33.0 RDW 16.4 H Plt Count 820 H Neut % (Auto) 72.0 Lymph % (Auto) 23.8 L [place] % (Auto) 3.6 Eos % (Auto) 0.0 L Baso % (Auto) 0.6 Neut # (Auto) 8400 H Lymph # (Auto) 2800 [place] # (Auto) 400 Eos # (Auto) 0 Baso # (Auto) 100 Nucleated RBCs Cancelled Hypersegmented Neuts Cancelled Hypogranular Neuts Cancelled Reactive Lymphocytes Cancelled Smudge Cells Cancelled Other Cell Type Cancelled Toxic Granulation Cancelled Toxic Vacuolation Cancelled Dohle Bodies Cancelled Maddie Rods Cancelled WBC Morphology Comment Cancelled Platelet Estimate Cancelled Clumped Platelets Cancelled Plt Morphology Comment Cancelled RBC Morphology Cancelled Dimorphic RBCs Cancelled Polychromasia Cancelled Hypochromasia Cancelled Poikilocytosis Cancelled Basophilic Stippling Cancelled Anisocytosis Cancelled Microcytosis Cancelled Macrocytosis Cancelled Spherocytes Cancelled Pappenheimer Bodies Cancelled Sickle Cells Cancelled Target Cells Cancelled Tear Drop Cells Cancelled Ovalocytes Cancelled Stomatocytes Cancelled Helmet Cells Cancelled [place]omin[place] Bodies Cancelled [place] Rings Cancelled Prabha Cells Cancelled Acanthocytes (Spur) Cancelled Rouleaux Cancelled Schistocytes Cancelled ESR 108 H ABG Sample Site Right brachial ABG pH 7.54 H ABG pCO2 27.1 L ABG pO2 77 L ABG HCO3 23 ABG Total CO2 23 ABG O2 Saturation 97 ABG Base Excess 1.3 FiO2 21 Sodium 134 L Potassium 3.7 Chloride 102 Carbon Dioxide 28 BUN 13 Creatinine 0.48 L Estimated GFR > 60 BUN/Creatinine Ratio 27.1 H Glucose 165 H Calcium 8.4 Total Creatine Kinase 38 C-Reactive Protein 7.2 H PFSH Medical History (Updated 02/11/24 @ 17:32 by Gloria Hyde RN) Ribs, multiple fractures COPD (chronic obstructive pulmonary disease) Non-Hodgkin lymphoma Adult celiac disease COVID Mixed connective tissue disease Social History household members: family and children Smoking Status: Never smoker alcohol intake: never substance use type: does not use Assessment & Plan Assessment & Plan narrative: 1. Acute respiratory failure with hypoxia on exertion - likely multifactorial but subacute nature and progressive symptoms suggestive of a probable autoimmune component. Combine this with fairly marked ESR elevation at >100 and CRP of 7.2. - Discussed with director of orthopedics to supplement the plan noted below. [place] recommended outpatient referral after above treatments for ongoing management. Patient also states she has rheumatology follow up on 02/16. - continue antibiotics with ceftriaxone and azithromycin (first doses in the ER) for presumed superimposed pneumonia, steroids with prenisone 40 mg PO daily for possible COPD exacerbation and/or mixed connective tissue disease. - send autoimmune workup with ESR, CRP, CK, ANCA, Scl-70, and MOHIT for now. Consider myositis panel. ESR 108, CRP 7.2. Others pending. - echocardiogram performed to see if pulmonary HTN or component of heart failure, which was unremarkable. 2. Community acquired pneumonia, bacterial, bilateral lower lobes - continue ceftriaxone x 5 days and azithromycin for 3days. - PSI score elevated, class IV risk with connective tissue disease and history of lymphoma. 3. Human metapneumovirus. - supportive care with cough syrup and guaifenecin. 4. Mixed connective tissue disease - continue home hydroxychloroquine 300 mg daily, steroids given as noted above. 5. Presumed obstructive lung disease / COPD with exacerbation - prednisone 40 mg daily x 5 days - Goal O2 89-96% if on supplemental therapy. - ABG showed respiratory alkalosis on admission. 6. Weight loss, concern for malnutrition 7. History of non-hodgkin lymphoma 8. Thrombocytosis - suspect reactive, will continue to follow. This is improving today. Code: Full, surrogate is patient's son DVT: Lovenox daily I have utilized all available immediate resources to obtain, update, or review the patient's current medications. Dispo: patient admitted under inpatient status due to elevated PSI score (class IV risk), new diagnosis of hypoxia, and anticipated length of stay beyond two midnights. Anticipate discharge home, after above evaluation. Additional history obtained via discussions with the ER provider and daughter in law. These discussions contributed to the creation of the above assessment and plan. I have reviewed patient's presenting documentation, labs, and imaging personally. Quality VTE Deep Vein Thrombosis/Pulmonary Embolism Present on Admission: No
[2024-02-12] MEDS: polyethylene glycoL 3350 17 GM POWD.PACK PO (17:55)
[2024-02-12] MEDS: SENNOSIDES 8.6 MG TABLET 17.2 MG PO (20:25)
[2024-02-12] MEDS: DOCUSATE 100 MG CAPSULE PO (20:25)
[2024-02-13] VITALS (11 sets, daily range): BP systolic 119–149; BP diastolic 73–86; PULSE 86–109; RESP 16–22; TEMP 36.1–36.7; O2SAT 92–96
[2024-02-13] MEDS: CODEINE/GUAIFENESIN LIQUID 5ML UDC 10 ML PO ×2 (01:00→03:25)
[2024-02-13 06:51] LABS: Add Manual Diff / Slide Review NO; Basophils Absolute Auto 0 /uL (0-100); Basophils Percent Auto 0.4 % (0-2); Eosinophils Absolute Auto 0 /uL (0-450); Hematocrit 27.1 % (36-46); Hemoglobin 9.1 g/dL (12.0-16.0); Lymphocytes Absolute Auto 3300 /uL (1100-4500); Mean Corpuscular HGB Conc 33.5 % (30-36); Mean Corpuscular Hemoglobin 30.5 PG (26-34); Mean Corpuscular Volume 90.8 fL (80-100); Monocytes Absolute Auto 1400 /uL (0-900); Monocytes Percent Auto 11.6 % (3-14); Neutrophils Absolute Auto 7400 /uL (1500-7000); Platelet Count 785 X10^3/uL (150-400); Red Blood Cell Count 2.98 X10^6/uL (4.0-5.2); Red Cell Distribution Width 16.8 % (11.6-14.8); White Blood Cell Count 12.1 X10^3/uL (4.5-11.0)
[2024-02-13 06:54] LABS: BUN Creatinine Ratio 28.6 (6-22); Blood Urea Nitrogen 12 mg/dL (7-17); Calcium 8.5 mg/dL (8.4-10.2); Carbon Dioxide 27 mmol/L (22-32); Chloride 101 mmol/L (98-107); Estimated Glomerular Filt Rate > 60 mL/min (>60); Glucose 98 mg/dL (80-110); HEMOLYSIS < 15 (0-50); Magnesium 2.2 mg/dL (1.6-2.3); Potassium 3.8 mmol/L (3.4-5.1); Sodium 133 mmol/L (137-145)
[2024-02-13] MEDS: BUDESONIDE 0.5 MG/2 ML NEB INH ×2 (07:06→19:35)
[2024-02-13] MEDS: ALBUTEROL 2.5 MG/3 ML NEB (ADULT) INH ×4 (07:06→19:35)
[2024-02-13 07:07] LABS: Anisocytosis 2+; Platelet Estimate Increased on smear
--- NOTE | 2024-02-13 07:50 | PM.PN.1 ---
Subjective Subjective Interval history: S: Still quite short of breath with movement and a lot of coughing spasms. She has a history of asthma and is diagnosed with possible bacterial pneumonia as well as metapneumovirus. She was receiving antibiotics as well as steroids and bronchodilators. Admitted with pneumonia, 02/10. Exam Vital Signs (past 8 hours): - 02/13/24 01:00 02/13/24 05:00 02/13/24 07:06 Temperature 98.0 F 97.7 F Pulse Rate 86 86 103 H Respiratory Rate 17 18 22 Blood Pressure 133/86 132/80 Pulse Oximetry 94 96 95 Oxygen Delivery Method Room Air Oxygen Flow Rate 0 0 0 Fraction of Inspired Oxygen 21 Fraction of Inspired Oxygen 21 SaO2/FiO2 Ratio 452 Oxygen Delivery Method Room Air Oxygen Flow Rate 0 Narrative Exam Narrative: NAD, alert and oriented. Fluent speech. Lungs are notable for normal rate and effort, diffuse wheezing with a very prolonged expiratory phase and coughing spasm on forced expiration. Heart is regular, no murmur gallop or rub. Abdomen is soft, non distended. Extremities are free of edema. Objective Labs 02/13/24 06:00 02/13/24 06:00 Labs: Laboratory Results - last 24 hr 02/12/24 02/13/24 09:46 06:00 WBC 11.7 H 12.1 H RBC 3.03 L 2.98 L Hgb 9.2 L 9.1 L Hct 27.8 L 27.1 L MCV 91.6 90.8 MCH 30.3 30.5 MCHC 33.0 33.5 RDW 16.4 H 16.8 H Plt Count 820 H 785 H Neut % (Auto) 72.0 61.0 Lymph % (Auto) 23.8 L 27.0 Daw[place] % (Auto) 3.6 11.6 Eos % (Auto) 0.0 L 0.0 L Baso % (Auto) 0.6 0.4 Neut # (Auto) 8400 H 7400 H Lymph # (Auto) 2800 3300 [place] # (Auto) 400 1400 H Eos # (Auto) 0 0 Baso # (Auto) 100 0 Nucleated RBCs Cancelled Hypersegmented Neuts Cancelled Hypogranular Neuts Cancelled Reactive Lymphocytes Cancelled Smudge Cells Cancelled Other Cell Type Cancelled Toxic Granulation Cancelled Toxic Vacuolation Cancelled Dohle Bodies Cancelled Maddie Rods Cancelled WBC Morphology Comment Cancelled Platelet Estimate Cancelled Increased on smear Clumped Platelets Cancelled Plt Morphology Comment Cancelled RBC Morphology Cancelled See below Dimorphic RBCs Cancelled Polychromasia Cancelled Hypochromasia Cancelled Poikilocytosis Cancelled Basophilic Stippling Cancelled Anisocytosis Cancelled 2+ H Microcytosis Cancelled Macrocytosis Cancelled Spherocytes Cancelled Pappenheimer Bodies Cancelled Sickle Cells Cancelled Target Cells Cancelled Tear Drop Cells Cancelled Ovalocytes Cancelled Stomatocytes Cancelled Helmet Cells Cancelled Momin-[place] Bodies Cancelled [place] Rings Cancelled [place] Cells Cancelled Acanthocytes (Spur) Cancelled Rouleaux Cancelled Schistocytes Cancelled Sodium 134 L 133 L Potassium 3.7 3.8 Chloride 102 101 Carbon Dioxide 28 27 BUN 13 12 Creatinine 0.48 L 0.42 L Estimated GFR > 60 > 60 BUN/Creatinine Ratio 27.1 H 28.6 H Glucose 165 H 98 Calcium 8.4 8.5 Magnesium 2.2 PFSH Medical History Ribs, multiple fractures COPD (chronic obstructive pulmonary disease) Non-Hodgkin lymphoma Adult celiac disease COVID Mixed connective tissue disease Social History household members: family and children Smoking Status: Never smoker alcohol intake: never substance use type: does not use Assessment & Plan Assessment & Plan narrative: 1. Acute respiratory failure with hypoxia on exertion, present on admission and improved. - likely multifactorial but subacute nature and progressive symptoms suggestive of a probable autoimmune component. Combine this with fairly marked ESR elevation at >100 and CRP of 7.2. - Discussed with nursing attendant to supplement the plan noted below. Radiographic Technologist recommended outpatient referral after above treatments for ongoing management. Patient also states she has rheumatology follow up on 02/16. - continue antibiotics with ceftriaxone and azithromycin (first doses in the ER) for presumed superimposed pneumonia, steroids with prenisone 40 mg PO daily for possible COPD exacerbation and/or mixed connective tissue disease. - echocardiogram unremarkable. 2. Community acquired pneumonia, bacterial, bilateral lower lobes, present on admission and improving. - continue ceftriaxone x 5 days and azithromycin for 3days. - PSI score elevated, class IV risk with connective tissue disease and history of lymphoma. 3. Human metapneumovirus, present on admission and improving. - supportive care with cough syrup and guaifenecin. 4. Mixed connective tissue disease, present on admission and stable. - continue home hydroxychloroquine 300 mg daily, steroids given as noted above. 5. Presumed obstructive lung disease / COPD with exacerbation - prednisone 40 mg daily x 5 days - Goal O2 89-96% if on supplemental therapy. - ABG showed respiratory alkalosis on admission. 6. Weight loss, concern for malnutrition, present on admission and active. 7. History of non-hodgkin lymphoma, present on admission and stable. 8. Thrombocytosis, present on admission and active. - suspect reactive, will continue to follow. This is improving today. 9. Severe Acute Protein Calorie Malnutrition r/t decreased ability to consume adequate intake as evidenced by moderate muscle wasting (temporalis, deltoid, trapezius, pectoralis, interosseous, quadriceps, gastrocnemius), moderate subcutaneous fat loss (buccal and orbital fat pads, triceps), <50% of estimated energy needs for 2 weeks, severe, 6% weight loss in 1 month, severe, BMI 18.6 (underweight for age). Estimated date of discharge: February 13 pending improvement of cough and reactive airways. Code: Full, surrogate is patient's son DVT: Lovenox daily I have utilized all available immediate resources to obtain, update, or review the patient's current medications. Dispo: patient admitted under inpatient status due to elevated PSI score (class IV risk), new diagnosis of hypoxia, and anticipated length of stay beyond two midnights. Anticipate discharge home, after above evaluation. Quality VTE Deep Vein Thrombosis/Pulmonary Embolism Present on Admission: No
[2024-02-13] MEDS: polyethylene glycoL 3350 17 GM POWD.PACK PO (09:01)
[2024-02-13] MEDS: ENOXAPARIN 40 MG/0.4 ML SYRINGE SUBCUT (09:01)
[2024-02-13] MEDS: predniSONE 20 MG TABLET 40 MG PO (09:01)
[2024-02-13] MEDS: HYDROXYCHLOROQUINE 200 MG TABLET 300 MG PO (09:02)
[2024-02-13] MEDS: guaiFENesin ER 600 MG TAB PO ×2 (09:02→21:31)
[2024-02-13] MEDS: DOCUSATE 100 MG CAPSULE PO ×2 (09:02→21:31)
[2024-02-13] MEDS: ONDANSETRON 4 MG/2 ML INJ IV ×2 (09:03→18:47)
[2024-02-13] MEDS: cefTRIAXone 1,000 MG in SODIUM CHLORIDE 0.9% 100 ML 200 MG IV (12:27)
[2024-02-13] MEDS: PARoxetine 20 MG TABLET PO (12:27)
[2024-02-13] MEDS: AZITHROMYCIN 500 MG in DEXTROSE 5% IN WATER 250 ML 250 MG IV (13:38)
[2024-02-13] MEDS: BENZONATATE 100 MG CAPSULE PO ×2 (15:39→21:38)
[2024-02-13 16:09] LABS: Scleroderma 70 Antibody < 0.2 AI (0.0-0.9)
[2024-02-13] MEDS: ACETAMINOPHEN 325 MG TABLET 650 MG PO (18:41)
[2024-02-13] MEDS: SENNOSIDES 8.6 MG TABLET 17.2 MG PO (21:31)
[2024-02-13] MEDS: MIRTAZAPINE 15 MG TABLET PO (21:31)
[2024-02-13] MEDS: LOSARTAN 25 MG TABLET 75 MG PO (21:33)
[2024-02-14 00:48] VITALS: BP 131/82; PULSE 82; RESP 16; TEMP 36.2; O2SAT 95
[2024-02-14 04:34] VITALS: BP 119/84; PULSE 89; RESP 18; TEMP 36.7; O2SAT 95
[2024-02-14 05:47] LABS: Add Manual Diff / Slide Review NO; Basophils Absolute Auto 0 /uL (0-100); Basophils Percent Auto 0.5 % (0-2); Eosinophils Absolute Auto 0 /uL (0-450); Eosinophils Percent Auto 0.1 % (2-4); Hematocrit 27.8 % (36-46); Hemoglobin 9.4 g/dL (12.0-16.0); Lymphocytes Absolute Auto 3900 /uL (1100-4500); Lymphocytes Percent Auto 49.8 % (25-40); Mean Corpuscular HGB Conc 33.9 % (30-36); Mean Corpuscular Hemoglobin 30.9 PG (26-34); Mean Corpuscular Volume 91.3 fL (80-100); Monocytes Absolute Auto 1000 /uL (0-900); Monocytes Percent Auto 12.3 % (3-14); Neutrophils Absolute Auto 2900 /uL (1500-7000); Neutrophils Percent Auto 37.3 % (50-75); Platelet Count 734 X10^3/uL (150-400); Red Blood Cell Count 3.04 X10^6/uL (4.0-5.2); Red Cell Distribution Width 17.5 % (11.6-14.8); White Blood Cell Count 7.8 X10^3/uL (4.5-11.0)
[2024-02-14 06:04] LABS: BUN Creatinine Ratio 20.4 (6-22); Blood Urea Nitrogen 11 mg/dL (7-17); Calcium 8.4 mg/dL (8.4-10.2); Carbon Dioxide 31 mmol/L (22-32); Chloride 103 mmol/L (98-107); Estimated Glomerular Filt Rate > 60 mL/min (>60); Glucose 94 mg/dL (80-110); HEMOLYSIS < 15 (0-50); Magnesium 2.4 mg/dL (1.6-2.3); Potassium 4.1 mmol/L (3.4-5.1); Sodium 138 mmol/L (137-145)
[2024-02-14 09:00] VITALS: BP 126/83; PULSE 101; RESP 17; TEMP 36.8; O2SAT 95
[2024-02-14 09:12] VITALS: PULSE 105; RESP 16; O2SAT 93
[2024-02-14] MEDS: ALBUTEROL 2.5 MG/3 ML NEB (ADULT) INH ×2 (09:12→14:16)
[2024-02-14] MEDS: BUDESONIDE 0.5 MG/2 ML NEB INH (09:12)
[2024-02-14] MEDS: ENOXAPARIN 40 MG/0.4 ML SYRINGE SUBCUT (09:27)
[2024-02-14] MEDS: DOCUSATE 100 MG CAPSULE PO (09:28)
[2024-02-14] MEDS: predniSONE 20 MG TABLET 40 MG PO (09:28)
[2024-02-14] MEDS: guaiFENesin ER 600 MG TAB PO (09:30)
[2024-02-14] MEDS: PARoxetine 20 MG TABLET PO (09:30)
[2024-02-14] MEDS: ACETAMINOPHEN 325 MG TABLET 650 MG PO (09:31)
--- NOTE | 2024-02-14 11:31 | P.DS_ITS ---
History of Present Illness History of Present Illness Chief complaint: lung covid since october, can't get better Narrative: From H&P: This is a 73 year old female with PMH of mixed connective tissue disease, non- hodgkins lymphoma who presents to the ER with worsening dyspnea on exertion. Her symptoms have been ongoing for about the past 3-4 months. She thinks it started with an upper respiratory illness a few months ago, which never improved and has only continued to progress. She never tested positive for COVID that she remembers. 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 She reports ongoing fever for months, but no joint swelling, chest pain. She does feel a bit worse lying flat. Denies LE edema. She has lost about 10 lbs recently due to loss of appetite and nausea. She has been coughing so hard that she broke multiple ribs on her R side. There is little change in her cough, maybe a bit worse the last few days, and remains constant and producitve of light green sputum intermittently. She denies any pets in her home or previously known allergies. She may have mold in her home but is not sure. In the emergency room, she desaturated to the upper 90s with exertion, which patient states has been somewhat chronic for her. She had low grade elevated temp to 100.2. CT angio showed no PE, some diffuse consolidations in bilateral lungs. Resp. panel was positive for human metapneumovirus. UA was negative for infection. Procalcitonin was 0.126, troponin negative, proBNP 131. ABG showed a respiratory alkalosis with pH of 7.54 with PCO2 of 27. pO2 was 77 on room air. Discharge Providers Provider Date of admission: 02/11/24 14:14 Discharge Date: 02/14/24 Consults: 02/11/24 16:00 Consult to Dietitian, Adult Routine Comment: high risk Reason For Exam: Weight loss, ceiliac disease, Non hodgkins lymphom Consult to Pastoral Services Routine Comment: wants a visit 02/11/24 17:05 Consult to Dietitian, Adult Routine Comment: Reason For Exam: malnutrition Discharge provider: Rudy Nieto MD Summary Hospital Course Discharge Diagnosis: 1. Acute respiratory failure with hypoxia on exertion, present on admission and resolved. - Discussed with sex therapist to supplement the plan noted below. Library Helper recommended outpatient referral after above treatments for ongoing management. Patient also states she has rheumatology follow up on 02/16. - continue antibiotics with ceftriaxone and azithromycin (first doses in the ER) for presumed superimposed pneumonia, steroids with prenisone 40 mg PO daily for possible COPD exacerbation and/or mixed connective tissue disease. - echocardiogram unremarkable. 2. Community acquired pneumonia, bacterial, bilateral lower lobes, present on admission and improving. - continue ceftriaxone x 5 days and azithromycin for 3days. - PSI score elevated, class IV risk with connective tissue disease and history of lymphoma. 3. Human metapneumovirus, present on admission and improving. - supportive care with cough syrup and guaifenecin. 4. Mixed connective tissue disease, present on admission and stable. - continue home hydroxychloroquine 300 mg daily, steroids given as noted above. 5. Presumed obstructive lung disease / COPD with exacerbation - prednisone 40 mg daily - Goal O2 89-96% if on supplemental therapy. - ABG showed respiratory alkalosis on admission. 6. History of non-hodgkin lymphoma, present on admission and stable. 7. Thrombocytosis, present on admission and active. 8. Severe Acute Protein Calorie Malnutrition r/t decreased ability to consume adequate intake as evidenced by moderate muscle wasting (temporalis, deltoid, trapezius, pectoralis, interosseous, quadriceps, gastrocnemius), moderate subcutaneous fat loss (buccal and orbital fat pads, triceps), <50% of estimated energy needs for 2 weeks, severe, 6% weight loss in 1 month, severe, BMI 18.6 (underweight for age). Hospital Course: She was admitted with acute respiratory failure in context of a subacute illness described as bronchitis with a persistent cough and wheezing. She was treated with antibiotics including ceftriaxone and azithromycin and she was positive on her PCR for metapneumovirus. She was given symptomatic treatment for cough and improved over the next several days. Her dyspnea at rest resolved and she had much less dyspnea with exertion. She still had a fair amount of upper airway broncho reactivity with coughing fits and expiratory wheezing on exam. On the day of discharge she was felt to be stable for discharge home and she does have a rheumatology appointment set up for 4 days following her discharge date. She requests prednisone 40 mg daily until she sees her chainstitch zipper setter and then to have a taper with him. He was at [facility]. She does note a past medical history of asthma. She has been looking for a pulmonary doctor and was referred to [facility] for outpatient follow up. Status at Discharge Cognitive/behavioral status at discharge: oriented Functional status at discharge: independent ambulation Overall status at discharge: patient is back to baseline Time Spent with Patient Time spent: Greater than 30 minutes Exam Vital Signs (past 8 hours): - 02/14/24 04:34 02/14/24 09:00 02/14/24 09:12 Temperature 98.1 F 98.3 F Pulse Rate 89 101 H 105 H Respiratory Rate 18 17 16 Blood Pressure 119/84 126/83 Pulse Oximetry 95 95 93 Oxygen Delivery Method Room Air Oxygen Flow Rate 0 Fraction of Inspired Oxygen 21 SaO2/FiO2 Ratio 452 Oxygen Delivery Method Room Air Oxygen Flow Rate 0 Narrative Exam Narrative: NAD, alert and oriented. Fluent speech. Lungs are notable for normal rate and effort. She does have expiratory wheezing and coughing with forced expiratory effort. Heart is regular, no murmur gallop or rub. Abdomen is soft, non distended. Extremities are free of edema. Objective Labs 02/14/24 05:17 02/14/24 05:17 Labs: Laboratory Results - last 24 hr 02/11/24 02/14/24 11:18 05:17 WBC 7.8 RBC 3.04 L Hgb 9.4 L Hct 27.8 L MCV 91.3 MCH 30.9 MCHC 33.9 RDW 17.5 H Plt Count 734 H Neut % (Auto) 37.3 L D Lymph % (Auto) 49.[address] [place] % (Auto) 12.3 Eos % (Auto) 0.1 L Baso % (Auto) 0.5 Neut # (Auto) 2900 Lymph # (Auto) 3900 [place] # (Auto) 1000 H Eos # (Auto) 0 Baso # (Auto) 0 Sodium 138 Potassium 4.1 Chloride 103 Carbon Dioxide 31 BUN 11 Creatinine 0.54 Estimated GFR > 60 BUN/Creatinine Ratio 20.4 Glucose 94 Calcium 8.4 Magnesium 2.4 H Scl-70 Scleroderma Ab < 0.2 PFSH Medical History Ribs, multiple fractures COPD (chronic obstructive pulmonary disease) Non-Hodgkin lymphoma Adult celiac disease COVID Mixed connective tissue disease Social History household members: family and children Smoking Status: Never smoker alcohol intake: never substance use type: does not use Discharge Assessment & Plan Assessment and Plan Assessment: 1. Acute respiratory failure with hypoxia on exertion, present on admission and resolved. - Discussed with sex therapist to supplement the plan noted below. Library Helper recommended outpatient referral after above treatments for ongoing management. Patient also states she has rheumatology follow up on 02/16. - continue antibiotics with ceftriaxone and azithromycin (first doses in the ER) for presumed superimposed pneumonia, steroids with prenisone 40 mg PO daily for possible COPD exacerbation and/or mixed connective tissue disease. - echocardiogram unremarkable. 2. Community acquired pneumonia, bacterial, bilateral lower lobes, present on admission and improving. - continue ceftriaxone x 5 days and azithromycin for 3days. - PSI score elevated, class IV risk with connective tissue disease and history of lymphoma. 3. Human metapneumovirus, present on admission and improving. - supportive care with cough syrup and guaifenecin. 4. Mixed connective tissue disease, present on admission and stable. - continue home hydroxychloroquine 300 mg daily, steroids given as noted above. 5. Presumed obstructive lung disease / COPD with exacerbation - prednisone 40 mg daily - Goal O2 89-96% if on supplemental therapy. - ABG showed respiratory alkalosis on admission. 6. History of non-hodgkin lymphoma, present on admission and stable. 7. Thrombocytosis, present on admission and active. 8. Severe Acute Protein Calorie Malnutrition r/t decreased ability to consume adequate intake as evidenced by moderate muscle wasting (temporalis, deltoid, trapezius, pectoralis, interosseous, quadriceps, gastrocnemius), moderate subcutaneous fat loss (buccal and orbital fat pads, triceps), <50% of estimated energy needs for 2 weeks, severe, 6% weight loss in 1 month, severe, BMI 18.6 (underweight for age). Plan of Treatment: Discharge with prednisone 40 mg daily until follow up with Rheumatology in 4 days. We will she will continue albuterol MDI as well. A referral to [facility] outpatient Pulmonary. She will likely need to be placed on a inhaled steroid chronically. I did ask her to expect this last phase of recovery to extend over several weeks. Discharge Plan Discharge Plan Patient Disposition: Home Provider Discharge Comment: Stable for discharge home. She was close follow up with her chainstitch zipper setter next Saturday at [facility]. Discharge orders & Medications Prescriptions: New benzonatate 100 mg Capsule 100 mg PO TID PRN (Reason: Cough) Qty: 60 0RF prednisone 20 mg Tablet 40 mg PO DAILY Qty: 20 0RF albuterol sulfate [ProAir HFA] 90 mcg/actuation HFA aerosol inhaler 2 puff inhalation Q6H PRN (Reason: shortness of breath or wheezing) Qty: 8.5 3RF Continued hydroxychloroquine 200 mg tablet 300 mg PO DAILY losartan 50 mg tablet 75 mg PO QPM mirtazapine 15 mg tablet 15 mg PO ONCE PM paroxetine HCl 20 mg tablet 20 mg PO DAILY Follow up/Referrals: Anderson Guillory MD [Physician] - (Needs referral to OP pulm for asthma) Skin/Wound/Dressing Care Report to your healthcare provider any signs of infection, such as:: chills, fever Visit Report/Discharge Packet Instructions: DI for Asthma -- Adult, Human Metapneumovirus Infection Stand Alone Forms: Patient Portal/API Quality VTE Deep Vein Thrombosis/Pulmonary Embolism Present on Admission: No
[2024-02-14 14:16] VITALS: PULSE 90; RESP 16; O2SAT 94
--- NOTE | 2024-02-14 15:16 | PC.NURSE ---
Pt stats she is feeling better. Continues w/expiratory wheezes noted on occassion. Orders for D/C received. SL D/C intact. Home instructions given w/understanding Pt escorted by staff via W/C to waiting vehicle in stable condition.
[2024-02-14 18:39] LABS: ANA Screen, IFA Positive (.)
[2024-02-20 13:10] LABS: Antimyeloperoxidase Antibodies <0.2 units (0.0-0.9); Antiproteinase 3 Antibodies <0.2 units (0.0-0.9); Cytoplasmic C-ANCA <1:20 titer (Neg:<1:20); Perinuclear P-ANCA <1:20 titer (Neg:<1:20)
== END 2024-02-14 15:15 | disposition home or self-care (01) | DRG 194 ==
LOC: ED 11:16 → AC 14:14
PROVIDERS: Admitting Provider Internal Medicine; Emergency Provider Emergency Medicine; Referring Provider Emergency Medicine; Visit Provider Internal Medicine
DX: J18.9 Pneumonia, unspecified organism (principal); D84.821 Immunodeficiency due to drugs; S22.41XA Multiple fractures of ribs, right side, initial encounter for closed fracture; Z68.1 Body mass index [BMI] 19.9 or less, adult; M35.1 Other overlap syndromes; J44.1 Chronic obstructive pulmonary disease with (acute) exacerbation; B97.81 Human metapneumovirus as the cause of diseases classified elsewhere; D75.839 Thrombocytosis, unspecified; X58.XXXA Exposure to other specified factors, initial encounter; Z79.69 Long term (current) use of other immunomodulators and immunosuppressants; Z85.72 Personal history of non-Hodgkin lymphomas
CPT/HCPCS: 36415; 36600; 71045; 71275; 80048; 80053; 81001; 81003; 82550; 82805; 83605; 83735; 83880; 84145; 84484; 85025; 85651; 86038; 86140; 86235; 86256; 87040; 87070; 87077; 87185; 87205; 87633; 93005; 93306; 94640; 96365; 96367; 99284; J0696; J1650; J2405; J7613

== ENCOUNTER → 2024-10-20 14:41 | Outpatient (CLI) | payer MEDICARE, SELFPAY ==
[2024-02-11 14:16] VITALS: BMI 18.6
[2024-10-20 15:34] LABS: Influenza A - CEPHEID Flu A NEGATIVE (NEGATIVE); Influenza B - CEPHEID Flu B NEGATIVE (NEGATIVE); Respiratory Syncytial Virus Negative (Negative)
[2024-10-20 15:35] LABS: COVID-19 CEPHEID 4-PLEX PCR Negative (Negative)
== END ==
PROVIDERS: PCP Family Medicine; Visit Provider Nurse Practitioner Family
DX: R05.9 Cough, unspecified (principal)
CPT/HCPCS: 0241U

== ENCOUNTER → 2024-10-20 14:56 | Outpatient (CLI) | payer MEDICARE, SELFPAY ==
[2024-02-11 14:16] VITALS: BMI 18.6
--- NOTE | 2024-10-20 14:58 | DI.RAD.S_ITS ---
PROCEDURE: XR CHEST 2V INDICATIONS: Cough TECHNIQUE: 2 views of the chest were acquired. COMPARISON: [facility], CR, XR CHEST 2 VIEWS, 06/03/2024, 18:10. [facility], CR, XR CHEST 1V, 02/11/2024, 11:05. FINDINGS: Surgical changes and devices: Suture material in the left lower lobe. Lungs and pleura: No consolidation. Minimal scarring at the lung bases. No pleural effusions or pneumothorax. Prominent lung volumes. Mediastinum: Mediastinal contours are unchanged. Heart size is normal. Bones and chest wall: No suspicious bony abnormalities. T12 compression fracture. Soft tissues appear unremarkable. IMPRESSION: No acute cardiopulmonary abnormality is seen. Dictated by: Ham Rowe M.D. on 10/21/2024 at 10:13 Approved by: Ham Rowe M.D. on 10/21/2024 at 10:15
== END ==
PROVIDERS: PCP Family Medicine; Referring Provider Nurse Practitioner Family; Visit Provider Nurse Practitioner Family
DX: R05.9 Cough, unspecified (principal)
CPT/HCPCS: 0241U; 71046

== ENCOUNTER 2024-11-23 16:55 | Observation (INO) | payer MEDICARE, SELFPAY ==
[2024-02-11 14:16] VITALS: BMI 18.6
[2024-11-23] VITALS (16 sets, daily range): BP systolic 104–136; BP diastolic 64–81; PULSE 81–131; RESP 8–18; TEMP 36.1–38.1; O2SAT 93–97; BMI 19.4; BMI 18.7
--- NOTE | 2024-11-23 17:13 | DI.RAD.S_ITS ---
PROCEDURE: XR CHEST 1V INDICATIONS: Shortness of breath TECHNIQUE: One view of the chest was acquired. COMPARISON: [facility], CR, XR CHEST 2V, 10/20/2024, 15:07. FINDINGS: Surgical changes and devices: None. Lungs and pleura: Ill-defined airspace opacity in right infrahilar region is seen. Left lung is clear. No pleural effusions or pneumothorax. Mediastinum: Mediastinal contours appear normal. Heart size is normal. Bones and chest wall: No suspicious bony lesions. Overlying soft tissues appear unremarkable. IMPRESSION: Suggestion of small infiltrate versus atelectasis in right lower lobe. No pleural effusion or pneumothorax. Dictated by: Tay Lyons M.D. on 11/23/2024 at 17:33 Approved by: Tay Lyons M.D. on 11/23/2024 at 17:34
[2024-11-23] MEDS: ALBUTEROL/IPRATROPIUM 3 ML AMPUL 9 ML INH (17:36)
--- NOTE | 2024-11-23 17:55 | EKG_ITS ---
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
[2024-11-23] MEDS: IBUPROFEN 400 MG TABLET PO (17:57)
[2024-11-23 18:10] LABS: Add Manual Diff / Slide Review NO; Basophils Absolute Auto 100 /uL (0-100); Basophils Percent Auto 0.5 % (0-2); Eosinophils Absolute Auto 0 /uL (0-450); Hematocrit 35.3 % (36-46); Hemoglobin 12.1 g/dL (12.0-16.0); Lymphocytes Absolute Auto 2800 /uL (1100-4500); Mean Corpuscular HGB Conc 34.2 % (30-36); Mean Corpuscular Volume 93.5 fL (80-100); Monocytes Absolute Auto 1600 /uL (0-900); Monocytes Percent Auto 10.7 % (3-14); Neutrophils Absolute Auto 10100 /uL (1500-7000); Neutrophils Percent Auto 69.8 % (50-75); Platelet Count 421 X10^3/uL (150-400); Red Blood Cell Count 3.78 X10^6/uL (4.0-5.2); Red Cell Distribution Width 13.2 % (11.6-14.8); White Blood Cell Count 14.5 X10^3/uL (4.5-11.0)
[2024-11-23 18:19] LABS: INR 1.1 (0.9-1.3); Prothrombin Time 12.6 SECONDS (9.4-12.5)
[2024-11-23 18:24] LABS: Alanine Aminotransferase 21 IU/L (<35); Albumin 4.2 g/dL (3.5-5.0); Albumin Globulin Ratio 1.4 (1.0-2.8); Alkaline Phosphatase 96 U/L (38-126); Aspartate Aminotransferase 32 IU/L (14-36); BUN Creatinine Ratio 20.3 (6-22); Bilirubin Total 0.7 mg/dL (0.2-1.3); Blood Urea Nitrogen 13 mg/dL (7-17); Calcium 9.6 mg/dL (8.4-10.2); Carbon Dioxide 22 mmol/L (22-32); Chloride 100 mmol/L (98-107); Estimated Glomerular Filt Rate > 60 mL/min (>60); Globulin 2.9 g/dL (1.7-4.1); Glucose 121 mg/dL (80-110); Potassium 3.9 mmol/L (3.4-5.1); Sodium 132 mmol/L (137-145); Total Protein 7.1 g/dL (6.3-8.2)
[2024-11-23 18:25] LABS: Lactate (Lactic Acid) 1.1 mmol/L (0.7-2.1)
[2024-11-23 18:29] LABS: HEMOLYSIS < 15 (0-50)
[2024-11-23 18:34] LABS: NT-proBNP (BNP-Adult 18+) 139 pg/mL (<125)
[2024-11-23 18:36] LABS: Troponin I < 0.012 ng/mL (0.01-0.034)
--- NOTE | 2024-11-23 18:54 | PC.NURSE ---
Pt coughing, requesting additional neb treatment. RT called for eval and treat.
--- NOTE | 2024-11-23 19:01 | ED_ITS ---
HPI - URI/Sore Throat General Chief Complaint: Upper Respiratory Symptoms Stated Complaint: sent Pulmonary, fever, coughing, had flu A Time Seen by Provider: 11/23/24 18:01 Source: patient Mode of arrival: Ambulatory History of Present Illness HPI Narrative: 74-year-old female history of asthma diagnosed with flu a positive last presents with dry cough, shortness of breath, fever, that has worsened since yesterday. Whole house is positive for flu. She is a nonsmoker she has tried her inhalers and taking Tamiflu without significant relief of her symptoms. No active chest pain leg swelling leg pain recent foreign travel or any other complaints at this time she is up-to-date on all her shots other than what is stated 14 point review of system is negative Related Data Home Medications Medication Instructions Recorded Confirmed hydroxychloroquine 200 mg tablet 300 mg PO DAILY 02/11/24 10/20/24 losartan 50 mg tablet 75 mg PO QPM blood pressure 02/13/24 10/20/24 mirtazapine 15 mg tablet 15 mg PO ONCE PM 02/13/24 10/20/24 paroxetine HCl 20 mg tablet 20 mg PO DAILY 02/13/24 10/20/24 Previous Rx's Medication Instructions Recorded albuterol sulfate 90 mcg/actuation 2 puff inhalation Q6H PRN 02/14/24 aerosol inhaler (ProAir HFA) shortness of breath or wheezing #8.5 grams benzonatate 100 mg capsule 100 mg PO TID PRN Cough #60 caps 02/14/24 prednisone 20 mg tablet 40 mg (2 x 20 mg) PO DAILY #20 tabs 02/14/24 benzonatate 200 mg capsule 200 mg PO BID PRN cough #28 caps 10/20/24 Allergies Allergy/AdvReac Type Severity Reaction Status Date / Time meperidine [From Demerol] Allergy Rash Verified 10/20/24 14:37 Sulfa (Sulfonamide Allergy Rash Verified 10/20/24 14:37 Antibiotics) Review of Systems Review of Systems ROS Unobtainable: All systems reviewed & are unremarkable except as noted in HPI and below Patient History Medical History Ribs, multiple fractures COPD (chronic obstructive pulmonary disease) Non-Hodgkin lymphoma Adult celiac disease COVID Mixed connective tissue disease Social History (System 03/09/24 @ 08:29 by Michelle Ponce) household members: family and children Smoking Status: Never smoker alcohol intake: never substance use type: does not use Smoking Status: Never smoker alcohol intake frequency: other Exam Narrative Exam Narrative: GENERAL: [74] year old patient appears stated age. Well-developed patient, in mild distress. HEAD: Atraumatic. Normocephalic. EYES: Pupils equal round and reactive. Extraocular motions intact. No scleral icterus. No injection or drainage. ENT: Nose without bleeding, purulent drainage. Throat without erythema, tonsillar hypertrophy or exudate. Airway patent. NECK: Trachea midline. Non tender CARDIOVASCULAR: Regular rate and rhythm without murmurs, gallops, or rubs. RESPIRATORY: Coarse rhonchi b/l with faint wheeze at the bases GASTROINTESTINAL: Abdomen soft, non-tender, nondistended. EXTREMITIES: No edema or joint tenderness. BACK: Nontender without deformity or crepitance. No flank tenderness. NEURO: AOx3. SKIN: No rash or erythema of visible areas Initial Vital Signs Initial Vital Signs: Vital Signs Temperature 100.5 F H 11/23/24 17:07 Pulse Rate 114 H 11/23/24 17:07 Respiratory Rate 18 11/23/24 17:07 Blood Pressure 136/74 11/23/24 17:07 Pulse Oximetry 96 11/23/24 17:07 Oxygen Delivery Method Room Air 11/23/24 17:07 Course Orders Ordered: ED Orders 11/23/24 17:13 XR chest 1V Stat EKG-12 Lead Stat Measure peak expiratory flow ONCE RT Consult Eval and Treat NOW 11/23/24 18:05 Complete Blood Count AUTO DIFF Stat Comprehensive Metabolic Panel Stat Lactate (Lactic Acid) Stat NT-proBNP (BNP-Adult 18+) Stat Prothrombin Time INR Stat Troponin I Stat 11/23/24 19:35 Blood Culture Stat 11/23/24 19:40 Lactate (Lactic Acid) Stat Procalcitonin Stat Discontinued Medications Albuterol/Ipratropium (Albuterol/Ipratropium 3 Ml Ampul) 9 ml INH NOW ONE Stop: 11/23/24 17:29 Last Admin: 11/23/24 17:36 Dose: 9 ml Documented By: ANNAMARIE Albuterol/Ipratropium (Albuterol/Ipratropium 3 Ml Ampul) 3 ml INH NOW ONE Stop: 11/23/24 19:09 Last Admin: 11/23/24 19:14 Dose: 3 ml Documented By: CINTIA Ceftriaxone Sodium 1,000 mg/ (Sodium Chloride) 100 mls @ 200 mls/hr IV NOW ONE Stop: 11/23/24 19:05 Last Infusion: 11/23/24 20:10 Dose: Infused Documented By: Admin: 11/23/24 19:41 Dose: 200 mls/hr Documented By: Azithromycin 500 mg/ Dextrose 250 mls @ 250 mls/hr IV NOW ONE Stop: 11/23/24 19:05 Last Infusion: 11/23/24 21:20 Dose: Infused Documented By: Admin: 11/23/24 20:15 Dose: 250 mls/hr Documented By: Ibuprofen (Ibuprofen 400 Mg Tablet) 400 mg PO NOW ONE Stop: 11/23/24 17:25 Last Admin: 11/23/24 17:57 Dose: 400 mg Documented By: Methylprednisolone (Methylprednisolone 125 Mg/2 Ml Vial) 125 mg IV NOW ONE Stop: 11/23/24 19:05 Last Admin: 11/23/24 19:41 Dose: 125 mg Documented By: Vital Signs Vital signs: Vital Signs - 8 hr 11/23/24 17:07 11/23/24 17:37 11/23/24 19:14 Temperature 100.5 F H Pulse Rate 114 H 131 H 115 H Respiratory Rate 18 16 18 Blood Pressure 136/74 Pulse Oximetry 96 96 96 Oxygen Delivery Method Room Air Room Air Room Air Oxygen Flow Rate 0 Fraction of Inspired Oxygen 21 MDM - URI/Sore Throat Lab Data 11/23/24 18:05 11/23/24 18:05 Labs: Lab Results 11/23/24 11/23/24 Range/Units 18:05 19:40 WBC 14.5 H (4.5-11.0) X10^3/uL RBC 3.78 L (4.0-5.2) X10^6/uL Hgb 12.1 (12.0-16.0) g/dL Hct 35.3 L (36-46) % MCV 93.5 (80-100) fL MCH 32.0 (26-34) PG MCHC 34.2 (30-36) % RDW 13.2 (11.6-14.8) % Plt Count 421 H (150-400) X10^3/uL Neut % (Auto) 69.8 (50-75) % Lymph % (Auto) 19.0 L (25-40) % [place] % (Auto) 10.7 (3-14) % Eos % (Auto) 0.0 L (2-4) % Baso % (Auto) 0.5 (0-2) % Neut # (Auto) 04816 H (4526-0613) /uL Lymph # (Auto) 2800 (7831-9925) /uL [place] # (Auto) 1600 H (0-900) /uL Eos # (Auto) 0 (0-450) /uL Baso # (Auto) 100 (0-100) /uL PT 12.6 H (9.4-12.5) SECONDS INR 1.1 (0.9-1.3) Sodium 132 L (137-145) mmol/L Potassium 3.9 (3.4-5.1) mmol/L Chloride 100 (98-107) mmol/L Carbon Dioxide 22 (22-32) mmol/L BUN 13 (7-17) mg/dL Creatinine 0.64 (0.52-1.04) mg/dL Estimated GFR > 60 (>60) mL/min BUN/Creatinine Ratio 20.3 (6-22) Glucose 121 H (80-110) mg/dL Lactate 1.1 0.8 (0.7-2.1) mmol/L Calcium 9.6 (8.4-10.2) mg/dL Total Bilirubin 0.7 (0.2-1.3) mg/dL AST 32 (14-36) IU/L ALT 21 (<35) IU/L Alkaline Phosphatase 96 (38-126) U/L Troponin I < 0.012 (0.01-0.034) ng/mL NT-Pro-B Natriuret Pep 139 H (<125) pg/mL Total Protein 7.1 (6.3-8.2) g/dL Albumin 4.2 (3.5-5.0) g/dL Globulin 2.9 (1.7-4.1) g/dL Albumin/Globulin Ratio 1.4 (1.0-2.8) Procalcitonin 0.116 (<0.5) ng/mL Imaging Data Chest x-ray: Radiologist's Impression: [facility] [address] [place] [address] XRay Report Signed Patient: Mariia Borrero MR#: [id number] : 1950 Acct:[id number] Age/Sex: 74 / F Date of Service: 11/23/24 Loc: ED Accession Number: [id number] Procedure: XR chest 1V Ordering Provider: Neptali Silva MD PROCEDURE: XR CHEST 1V INDICATIONS: Shortness of breath TECHNIQUE: One view of the chest was acquired. COMPARISON: [facility], CR, XR CHEST 2V, 10/20/2024, 15:07. FINDINGS: Surgical changes and devices: None. Lungs and pleura: Ill-defined airspace opacity in right infrahilar region is seen. Left lung is clear. No pleural effusions or pneumothorax. Mediastinum: Mediastinal contours appear normal. Heart size is normal. Bones and chest wall: No suspicious bony lesions. Overlying soft tissues appear unremarkable. IMPRESSION: Suggestion of small infiltrate versus atelectasis in right lower lobe. No pleural effusion or pneumothorax. ECG Data Interpretation: Sinus Tach 105 Pr 140 QRS [address]-t wave change Unchanged from 02/11/24 MDM Narrative Medical decision making narrative: All lab work EKG chest x-ray all reviewed patient was given Rocephin 1 g here and Zithromax 500 mg Solu-Medrol 125 and 2 DuoNebs here. Patient will be admitted for right lower lobe pneumonia case discussed with Dr. Lopez for admission who has graciously accepted patient for admission for observation status. Differential diagnosis includes pneumonia COVID flu RSV sepsis. Discharge Plan Departure Patient Disposition: Admitted as Observation Clinical Impression: Pneumonia Qualifiers: Pneumonia type: due to influenza A virus Qualified Code(s): J10.00 - Influenza due to other identified influenza virus with unspecified type of pneumonia Prescriptions: No Action benzonatate 200 mg capsule 200 mg PO BID PRN (Reason: cough) Qty: 28 0RF hydroxychloroquine 200 mg tablet 300 mg PO DAILY losartan 50 mg tablet 75 mg PO QPM mirtazapine 15 mg tablet 15 mg PO ONCE PM paroxetine HCl 20 mg tablet 20 mg PO DAILY benzonatate 100 mg Capsule 100 mg PO TID PRN (Reason: Cough) Qty: 60 0RF prednisone 20 mg Tablet 40 mg PO DAILY Qty: 20 0RF albuterol sulfate [ProAir HFA] 90 mcg/actuation HFA aerosol inhaler 2 puff inhalation Q6H PRN (Reason: shortness of breath or wheezing) Qty: 8.5 3RF Referrals: Korina Cobb MD [Primary Care Provider] -
[2024-11-23] MEDS: ALBUTEROL/IPRATROPIUM 3 ML AMPUL INH (19:14)
[2024-11-23] MEDS: methylPREDNISolone 125 MG/2 ML VIAL IV (19:41)
[2024-11-23] MEDS: cefTRIAXone 1,000 MG in SODIUM CHLORIDE 0.9% 100 ML 200 MG IV (19:41)
[2024-11-23 20:11] LABS: Lactate (Lactic Acid) 0.8 mmol/L (0.7-2.1)
[2024-11-23] MEDS: AZITHROMYCIN 500 MG in DEXTROSE 5% IN WATER 250 ML 250 MG IV (20:15)
[2024-11-23 20:28] LABS: Procalcitonin 0.116 ng/mL (<0.5)
--- NOTE | 2024-11-23 22:38 | PM.HP.1 ---
History of Present Illness History of Present Illness Chief complaint: sent Pulmonary, fever, coughing, had flu A Narrative: 74F with PMH of COPD, celiac disease, MCTD, HTN had Flu A last week. Was placed on Tamiflu which she finished yesterday. She was feeling improved but then last night and today, developed dyspnea, productive cough, fever, and weakness. No dizziness, focal weakness, presyncope. Initial vitals showed minimal fever and tachycardia to 110s. CXR showed RLL pneumonia. She was given antibiotics, steroids, and neb treatments with improvement in respiratory status and tachycardia. She still is coughing occasionally. [facility] Medical History Ribs, multiple fractures COPD (chronic obstructive pulmonary disease) Non-Hodgkin lymphoma Adult celiac disease COVID Mixed connective tissue disease Social History household members: family and children Smoking Status: Never smoker alcohol intake: never substance use type: does not use Meds Home Medications and Allergies Home Medications Medication Instructions Recorded Confirmed Type hydroxychloroquine 200 mg tablet 300 mg PO DAILY 02/11/24 10/20/24 History losartan 50 mg tablet 75 mg PO QPM blood pressure 02/13/24 10/20/24 History mirtazapine 15 mg tablet 15 mg PO ONCE PM 02/13/24 10/20/24 History paroxetine HCl 20 mg tablet 20 mg PO DAILY 02/13/24 10/20/24 History albuterol sulfate 90 mcg/actuation 2 puff inhalation Q6H PRN 02/14/24 10/20/24 Rx aerosol inhaler (ProAir HFA) shortness of breath or wheezing #8.5 grams benzonatate 100 mg capsule 100 mg PO TID PRN Cough #60 caps 02/14/24 10/20/24 Rx prednisone 20 mg tablet 40 mg (2 x 20 mg) PO DAILY #20 tabs 02/14/24 10/20/24 Rx benzonatate 200 mg capsule 200 mg PO BID PRN cough #28 caps 10/20/24 10/20/24 Rx Allergies Allergy/AdvReac Type Severity Reaction Status Date / Time meperidine [From Demerol] Allergy Rash Verified 10/20/24 14:37 Sulfa (Sulfonamide Allergy Rash Verified 10/20/24 14:37 Antibiotics) Review of Systems Review of Systems Narrative: as per HPI. rest of 10-system review negative. Exam Vital Signs (past 8 hours): - 11/23/24 17:07 11/23/24 17:37 11/23/24 17:59 Temperature 100.5 F H Pulse Rate 114 H 131 H 120 H Respiratory Rate 18 16 Blood Pressure 136/74 Pulse Oximetry 96 96 96 Oxygen Delivery Method Room Air Room Air Oxygen Flow Rate Fraction of Inspired Oxygen 11/23/24 18:00 11/23/24 18:00 11/23/24 18:30 Temperature Pulse Rate 124 H Respiratory Rate Blood Pressure 132/81 130/74 Pulse Oximetry 95 Oxygen Delivery Method Room Air Oxygen Flow Rate Fraction of Inspired Oxygen 11/23/24 18:30 11/23/24 19:00 11/23/24 19:00 Temperature Pulse Rate 114 H 117 H Respiratory Rate 15 Blood Pressure 129/72 Pulse Oximetry 94 93 Oxygen Delivery Method Oxygen Flow Rate Fraction of Inspired Oxygen 11/23/24 19:14 11/23/24 19:30 11/23/24 19:30 Temperature Pulse Rate 115 H 113 H Respiratory Rate 18 14 Blood Pressure 104/65 Pulse Oximetry 96 94 Oxygen Delivery Method Room Air Room Air Oxygen Flow Rate 0 Fraction of Inspired Oxygen 21 11/23/24 20:00 11/23/24 20:00 11/23/24 20:30 Temperature Pulse Rate 103 H 96 H Respiratory Rate 10 L 11 L Blood Pressure 109/64 Pulse Oximetry 94 94 Oxygen Delivery Method Oxygen Flow Rate Fraction of Inspired Oxygen 11/23/24 20:30 11/23/24 21:00 11/23/24 21:00 Temperature 100.5 F H Pulse Rate 97 H Respiratory Rate 11 L Blood Pressure 112/67 108/68 Pulse Oximetry 95 Oxygen Delivery Method Oxygen Flow Rate Fraction of Inspired Oxygen 11/23/24 21:30 11/23/24 21:30 11/23/24 22:00 Temperature Pulse Rate 91 H 93 H Respiratory Rate 18 14 Blood Pressure 111/67 Pulse Oximetry 96 97 Oxygen Delivery Method Room Air Oxygen Flow Rate Fraction of Inspired Oxygen 11/23/24 22:00 Temperature Pulse Rate Respiratory Rate Blood Pressure 113/73 Pulse Oximetry Oxygen Delivery Method Oxygen Flow Rate Fraction of Inspired Oxygen Fraction of Inspired Oxygen 21 SaO2/FiO2 Ratio 457 Oxygen Delivery Method Room Air Oxygen Flow Rate 0 Const Other: AA, NAD HENNC Other: NC/AT, PERRL, EOMI, OP clear. Neck Other: neck supple Resp Other: coarse RUL>RLL, diminished L side, no wheezing Cardio Other: RRR GI Other: S/NT/ND/+BS Skin Other: no evident rash Extrem Other: no edema BLE Psych Other: normal mood, affect Objective Imaging Chest x-ray: Radiologist's impression: RLL pneumonia Labs 11/23/24 18:05 11/23/24 18:05 Labs: Laboratory Results - last 24 hr 11/23/24 11/23/24 18:05 19:40 WBC 14.5 H RBC 3.78 L Hgb 12.1 Hct 35.3 L MCV 93.5 MCH 32.0 MCHC 34.2 RDW 13.2 Plt Count 421 H Neut % (Auto) 69.8 Lymph % (Auto) 19.0 L [place] % (Auto) 10.7 Eos % (Auto) 0.0 L Baso % (Auto) 0.5 Neut # (Auto) 81805 H Lymph # (Auto) 2800 [place] # (Auto) 1600 H Eos # (Auto) 0 Baso # (Auto) 100 PT 12.6 H INR 1.1 Sodium 132 L Potassium 3.9 Chloride 100 Carbon Dioxide 22 BUN 13 Creatinine 0.64 Estimated GFR > 60 BUN/Creatinine Ratio 20.3 Glucose 121 H Lactate 1.1 0.8 Calcium 9.6 Total Bilirubin 0.7 AST 32 ALT 21 Alkaline Phosphatase 96 Troponin I < 0.012 NT-Pro-B Natriuret Pep 139 H Total Protein 7.1 Albumin 4.2 Globulin 2.9 Albumin/Globulin Ratio 1.4 Procalcitonin 0.116 Assessment & Plan Assessment and plan (1) Pneumonia: Qualifiers: Pneumonia type: due to influenza A virus Qualified Code(s): J10.00 - Influenza due to other identified influenza virus with unspecified type of pneumonia Status: Acute Plan 1. Acute RLL pneumonia s/p Flu A treated, COPD, without acute hypoxic respiratory failure, without sepsis, POA 2. Generalized weakness 3. MCTD, celiac disease Plan: 1. Admit to observation 2. Rocephin, Azithromycin 3. s/p solumedrol high-dose x1 4. Duonebs 5. Incentive spirometry, flutter valve for expectoration 6. O2 to SaO2 >88% 7. PPI 8. DVT prophylaxis - SCDs Expect discharge 1-2 days. Time-Based Coding :: [TOTAL MINUTES] spent with patient and on the chart (including review of chart, obtaining history, exam, reviewing outside data, placing orders, documenting exam and treatment plan, and counseling patient) on [DATE].
[2024-11-23 22:56] LABS: Influenza A - CEPHEID Flu A NEGATIVE (NEGATIVE); Influenza B - CEPHEID Flu B NEGATIVE (NEGATIVE); Respiratory Syncytial Virus Negative (Negative)
[2024-11-23 22:59] LABS: COVID-19 CEPHEID 4-PLEX PCR Negative (Negative)
[2024-11-24] VITALS (10 sets, daily range): BP systolic 111–131; BP diastolic 61–82; PULSE 54–94; RESP 13–18; TEMP 35.9–36.4; O2SAT 95–98
[2024-11-24] MEDS: ACETAMINOPHEN 325 MG TABLET 650 MG PO ×3 (00:12→18:02)
[2024-11-24] MEDS: MONTELUKAST 10 MG TABLET PO ×2 (00:12→20:05)
[2024-11-24] MEDS: MIRTAZAPINE 15 MG TABLET PO ×2 (00:12→20:05)
[2024-11-24 01:08] LABS: MRSA (Nasal) PCR NOT DETECTED (Not Detect)
[2024-11-24 04:58] LABS: Add Manual Diff / Slide Review NO; Basophils Absolute Auto 100 /uL (0-100); Eosinophils Absolute Auto 0 /uL (0-450); Hematocrit 34.3 % (36-46); Hemoglobin 11.5 g/dL (12.0-16.0); Lymphocytes Absolute Auto 1500 /uL (1100-4500); Lymphocytes Percent Auto 11.8 % (25-40); Mean Corpuscular HGB Conc 33.6 % (30-36); Mean Corpuscular Hemoglobin 31.6 PG (26-34); Mean Corpuscular Volume 94.3 fL (80-100); Monocytes Absolute Auto 300 /uL (0-900); Monocytes Percent Auto 2.7 % (3-14); Neutrophils Absolute Auto 10400 /uL (1500-7000); Neutrophils Percent Auto 84.5 % (50-75); Platelet Count 396 X10^3/uL (150-400); Red Blood Cell Count 3.63 X10^6/uL (4.0-5.2); Red Cell Distribution Width 13.2 % (11.6-14.8); White Blood Cell Count 12.3 X10^3/uL (4.5-11.0)
[2024-11-24 05:17] LABS: BUN Creatinine Ratio 24.2 (6-22); Blood Urea Nitrogen 15 mg/dL (7-17); Carbon Dioxide 24 mmol/L (22-32); Chloride 102 mmol/L (98-107); Estimated Glomerular Filt Rate > 60 mL/min (>60); Glucose 178 mg/dL (80-110); HEMOLYSIS < 15 (0-50); Magnesium 2.2 mg/dL (1.6-2.3); Potassium 4.3 mmol/L (3.4-5.1); Sodium 134 mmol/L (137-145)
--- NOTE | 2024-11-24 06:22 | PC.ADMIT ---
[email or web address] [facility] Admission Note: The patient,Mariia Duran,74 y/o, was given written information regarding hospital policies, unit procedures and contact persons. Patient's smoking status: Never smoker. Vital Signs - 8 hr 11/23/24 22:30 11/23/24 22:30 11/23/24 23:15 Temperature Pulse Rate 91 H Respiratory Rate 16 Blood Pressure 122/74 Pulse Oximetry 97 Oxygen Delivery Method Room Air Room Air 11/23/24 23:24 11/24/24 02:32 Temperature 96.9 F L 96.6 F L Pulse Rate 54 L Respiratory Rate 13 Blood Pressure 120/61 Pulse Oximetry 97 Oxygen Delivery Method Patient admitted to room 230 at 2315, A/Ox4. Ambulates with SBA, slight lightheadedness. VSS, 97% RA, minimal cough, coarse crackles to RLL. Scheduled Tylenol given.
[2024-11-24] MEDS: SODIUM CHLORIDE 0.9% FLUSH 10 ML IV ×2 (08:53→20:06)
[2024-11-24] MEDS: PANTOPRAZOLE DR 20 MG TABLET PO (08:53)
[2024-11-24] MEDS: ALBUTEROL/IPRATROPIUM 3 ML AMPUL INH (12:13)
--- NOTE | 2024-11-24 13:49 | DIET.CONS ---
Dietary Consultation Note Admission Date: 11/23/2024 21:56 Assessment: 74 y F admitted for pneumonia. Dietitian screened for low MNA. Pt reports 8 lb weight loss within 1 month. Had flu and decrease appetite for last few weeks. Normally has 3 regular meals (eggs and toast, lunch and dinner of fish/chx, rice/potatoes, vegs) per day and snacks (cottage cheese& fruit, protein drink, 20g). Notes within last 2 months has been having more gas, bloating, abd cramping, and diarrhea. Has GI scheduled end of December. Has celiac disease and follows G[facility] for 30+ yrs. Is currently following low fodmaps diet plan without much symptom improvement. Ht: 165.1 cm Wt: 51 kg BMI: 18.7 UBW: 55 kg on 10/20/24 (-7% weight loss within 1 month, severe) Last BM: 11/23/24 (11/23/24 23:54) MNA: 9 Jonah Score: 22 Diet: 11/23/24 Breakfast Heart Healthy Diet Diet Modifications: Labs: RBC 3.63 X10^6/uL (4.0-5.2) L 11/24/24 04:22 Hgb 11.5 g/dL (12.0-16.0) L 11/24/24 04:22 Hct 34.3 % (36-46) L 11/24/24 04:22 Creatinine 0.62 mg/dL (0.52-1.04) 11/24/24 04:22 Lactate 0.8 mmol/L (0.7-2.1) 11/23/24 19:40 NT-Pro-B Natriuret Pep 139 pg/mL (<125) H 11/23/24 18:05 Nutrition Diagnosis: Unintentional weight loss r/t inadequate oral intake aeb 7% weight loss in 1 month (severe) Food and nutrition related knowledge deficit r/t limited previous formal nutrition educ on IBS/fodmaps aeb questions regarding fodmaps diet plan, staying on low fodmaps for prolonged period Interventions: -Ensure Enlive 1x/d trial -Discussed additional nutrient dense snacks upon d/c for +250-750 kcals/day for weight regain -Discussed consulting with GI regarding etiology behind symptoms and that re dye hand low fodmaps is not recommended Monitoring/Evaluations: po intakes, ONS tolerance Electronically Signed by: Brittni Hammond 11/24/24 13:49 Clinical Dietitian [address] [address]
[2024-11-24] MEDS: ALBUTEROL 2.5 MG/3 ML NEB (ADULT) INH ×3 (16:11→22:10)
--- NOTE | 2024-11-24 17:04 | CM.DANOTE ---
B DCP Assessment note pt is a 74yo F admitted with pneumonia/COPD exacerbation PCP Korina SAINI medicare and self pay DROSSER reviewed EMR. per chart, pt lives with son Sun in [place]. per RN, pt indep in room. on room air at the moment. ARSENIO another day or so. no obvious CM needs DROSSER unable to meet with pt today due to triaging needs. P: anticipate return home with family support and likely OP f/u. CM team will continue to follow closely in case any DCP needs arise SARAH Sun Discharge Planning/Care Management CM Discharge Assessment Start: 11/24/24 17:02 Freq: Status: Active Protocol: Document 11/24/24 17:02 SL (Rec: 11/24/24 17:04 SL Desktop) Discharge Planning Assessment Assigned [employer] Operator SARAH Meraz DPOA/Assigned Designee Name ember hamilton Contact Information [phone] Advance Directives? Yes Advance Directives on File No History Provided By Patient Prior Living Arrangements House Household Members family,children Independent with ADL's Yes Is patient alert and oriented? Yes Discharge Plan Home Transportation Arrangement likely family in [place] Referrals Initiated None needed Review Status In Process Please Provide Date Initial DC 11/24/24 Assessment Was Performed Next Review Type Continued Stay Review
--- NOTE | 2024-11-24 17:27 | PC.NURSE ---
Day Shift Note Patient is alert and oriented x4. Up steady on feet, independent in room. RA with SpO2 95-96%, reports shortness of breath with exertion but says this has improved. Harsh cough, nonproductive. Denies pain, denies nausea. Tolerating a PO intake without issue. Flutter valve provided and pt instructed on its use. Call light within reach, using appropriately to make needs known.
--- NOTE | 2024-11-24 19:14 | P.PN_ITS ---
Subjective Subjective Date Patient Seen: 11/24/24 Time Patient Seen: 19:14 Interval history: Chief complaint: Community-acquired pneumonia with productive cough fever history of a influenza a exacerbation of COPD History of present illness: 74F with PMH of COPD, celiac disease, MCTD, HTN had Flu A last week. Was placed on Tamiflu which she finished yesterday. She was feeling improved but then last night and today, developed dyspnea, productive cough, fever, and weakness. No dizziness, focal weakness, presyncope. Initial vitals showed minimal fever and tachycardia to 110s. CXR showed RLL pneumonia. She was given antibiotics, steroids, and neb treatments with improvement in respiratory status and tachycardia. She still is coughing occasionally. Hospital course: 11/24: Patient having productive cough but is already in the improvement in her symptoms Review of systems: No loss of consciousness new line no chest pain No nausea vomiting diarrhea No urinary symptoms Physical exam: No acute distress on room air HEENT unremarkable new line neck no JVD Heart rate and rhythm regular Lungs lungs with diffuse wheezes new lines abdomen benign Extremities no edema new Assessment and plan: Can be acquired pneumonia and COPD exacerbation on communicate pathway ceftriaxone azithromycin 1 dose of Solu-Medrol Bronchodilators new line incentive spirometry and flutter valve DVT prophylaxis SCDs The 35 minutes spent in evaluation of this patient Exam Vital Signs (past 8 hours): - 11/24/24 15:00 11/24/24 15:15 11/24/24 16:00 Temperature 96.8 F L 96.8 F L Pulse Rate 68 Respiratory Rate 15 Blood Pressure 112/82 112/82 Pulse Oximetry 95 Oxygen Flow Rate 0 Fraction of Inspired Oxygen 21 SaO2/FiO2 Ratio 457 Oxygen Delivery Method Room Air Oxygen Flow Rate 0 Objective Labs 11/24/24 04:22 11/24/24 04:22 Labs: Laboratory Results - last 24 hr 11/23/24 11/23/24 11/23/24 19:40 22:11 23:10 WBC RBC Hgb Hct MCV MCH MCHC RDW Plt Count Neut % (Auto) Lymph % (Auto) [place] % (Auto) Eos % (Auto) Baso % (Auto) Neut # (Auto) Lymph # (Auto) [place] # (Auto) Eos # (Auto) Baso # (Auto) Sodium Potassium Chloride Carbon Dioxide BUN Creatinine Estimated GFR BUN/Creatinine Ratio Glucose Lactate 0.8 Calcium Magnesium Procalcitonin 0.116 Nasal Screen MRSA (PCR) Not detected SARS-CoV-2 (PCR) Negative Influenza A (RT-PCR) Flu a negative Influenza B (RT-PCR) Flu b negative RSV (PCR) Negative 11/24/24 04:22 WBC 12.3 H RBC 3.63 L Hgb 11.5 L Hct 34.3 L MCV 94.3 MCH 31.6 MCHC 33.6 RDW 13.2 Plt Count 396 Neut % (Auto) 84.5 H Lymph % (Auto) 11.8 L [place] % (Auto) 2.7 L Eos % (Auto) 0.0 L Baso % (Auto) 1.0 Neut # (Auto) 11333 H Lymph # (Auto) 1500 [place] # (Auto) 300 Eos # (Auto) 0 Baso # (Auto) 100 Sodium 134 L Potassium 4.3 Chloride 102 Carbon Dioxide 24 BUN 15 Creatinine 0.62 Estimated GFR > 60 BUN/Creatinine Ratio 24.2 H Glucose 178 H Lactate Calcium 9.0 Magnesium 2.2 Procalcitonin Nasal Screen MRSA (PCR) SARS-CoV-2 (PCR) Influenza A (RT-PCR) Influenza B (RT-PCR) RSV (PCR) [facility] Medical History Ribs, multiple fractures COPD (chronic obstructive pulmonary disease) Non-Hodgkin lymphoma Adult celiac disease COVID Mixed connective tissue disease Social History household members: family and children Smoking Status: Never smoker alcohol intake: never substance use type: does not use Assessment & Plan Time-Based Coding :: [TOTAL MINUTES] spent with patient and on the chart (including review of chart, obtaining history, exam, reviewing outside data, placing orders, documenting exam and treatment plan, and counseling patient) on [DATE].
[2024-11-24] MEDS: BUDESONIDE 0.5 MG/2 ML NEB INH (19:46)
[2024-11-24] MEDS: cefTRIAXone 1,000 MG in SODIUM CHLORIDE 0.9% 100 ML 200 MG IV (20:05)
[2024-11-24] MEDS: AZITHROMYCIN 500 MG in DEXTROSE 5% IN WATER 250 ML 250 MG IV (22:29)
[2024-11-25] VITALS (19 sets, daily range): BP systolic 104–134; BP diastolic 58–77; PULSE 64–102; RESP 16–19; TEMP 35.8–36.4; O2SAT 85–100
[2024-11-25] MEDS: ACETAMINOPHEN 325 MG TABLET 650 MG PO ×5 (00:31→23:27)
[2024-11-25] MEDS: PANTOPRAZOLE DR 20 MG TABLET PO (05:51)
[2024-11-25] MEDS: SODIUM CHLORIDE 0.9% FLUSH 10 ML IV ×2 (08:27→20:17)
[2024-11-25] MEDS: BUDESONIDE 0.5 MG/2 ML NEB INH ×2 (08:57→19:11)
[2024-11-25] MEDS: ALBUTEROL 2.5 MG/3 ML NEB (ADULT) INH ×4 (08:57→22:14)
[2024-11-25] MEDS: BENZONATATE 100 MG CAPSULE PO ×3 (09:02→23:27)
[2024-11-25] MEDS: methylPREDNISolone 125 MG/2 ML VIAL 62.5 MG IV ×2 (09:02→20:12)
--- NOTE | 2024-11-25 15:47 | CM.DPNOTE ---
DCP note [employer] reviewed EMR per chart review, doing well on room air. per RN, mobilizing indep in room. no new CM needs. Per provider in rounds, dc today vs tomorrow. pt still coughing and wheezing a lot. Per chart/RN/provider no new CM needs identified at this time P: anticipate return home with family support when medically stable. son to transport at dc. CM team will continue to follow in case any DCP needs arise. SARAH Sun
[2024-11-25] MEDS: PARoxetine 20 MG TABLET PO (16:21)
--- NOTE | 2024-11-25 17:29 | DIET.PN1 ---
Dietary Progress Note Assessment: f/u. Pt did not tolerate Ensure, ordered pb sandwich as bedtime snack tonight instead. Good PO intakes recorded 75-100%. Answered additional questions regarding nutrition to support gastrointestinal health. F/u PRN. Ht: 165.1 cm Wt: 51 kg BMI: 18.7 Last BM: 11/25/24 (11/25/24 14:10) MNA: 9 Jonah Score: 23 Diet: 11/23/24 Breakfast Heart Healthy Diet Diet Modifications: Nutrition Percent Meal Consumed 100% 11/24/24 17:29 Percent Meal Consumed 75% 11/24/24 13:00 Percent Meal Consumed 100% 11/24/24 10:00 Labs: RBC 3.63 X10^6/uL (4.0-5.2) L 11/24/24 04:22 Hgb 11.5 g/dL (12.0-16.0) L 11/24/24 04:22 Hct 34.3 % (36-46) L 11/24/24 04:22 Creatinine 0.62 mg/dL (0.52-1.04) 11/24/24 04:22 Lactate 0.8 mmol/L (0.7-2.1) 11/23/24 19:40 NT-Pro-B Natriuret Pep 139 pg/mL (<125) H 11/23/24 18:05 Electronically Signed by: Brittni Hammond 11/25/24 17:29 Clinical Dietitian [address] [id number]
--- NOTE | 2024-11-25 17:46 | P.PN_ITS ---
Subjective Subjective Date Patient Seen: 11/25/24 Time Patient Seen: 17:46 Interval history: Chief complaint: Community-acquired pneumonia with productive cough fever history of a influenza a exacerbation of COPD History of present illness: 74F with PMH of COPD, celiac disease, MCTD, HTN had Flu A last week. Was placed on Tamiflu which she finished yesterday. She was feeling improved but then last night and today, developed dyspnea, productive cough, fever, and weakness. No dizziness, focal weakness, presyncope. Initial vitals showed minimal fever and tachycardia to 110s. CXR showed RLL pneumonia. She was given antibiotics, steroids, and neb treatments with improvement in respiratory status and tachycardia. She still is coughing occasionally. Hospital course: 11/24: Patient having productive cough but is already in the improvement in her symptoms Review of systems: No loss of consciousness new line no chest pain No nausea vomiting diarrhea No urinary symptoms Physical exam: No acute distress on room air HEENT unremarkable new line neck no JVD Heart rate and rhythm regular Lungs lungs with diffuse wheezes new lines abdomen benign Extremities no edema new Assessment and plan: Community acquired pneumonia and COPD exacerbation on communicate pathway ceftriaxone azithromycin 1 dose of Solu-Medrol de-escalated to oral prednisone Bronchodilators new line incentive spirometry and flutter valve DVT prophylaxis SCDs The 35 minutes spent in evaluation of this patient Exam Vital Signs (past 8 hours): - 11/25/24 12:26 11/25/24 14:23 11/25/24 16:26 Temperature 97.5 F L 97.2 F L Pulse Rate 64 85 82 Respiratory Rate 16 16 18 Blood Pressure 117/69 104/58 L Pulse Oximetry 97 98 97 Oxygen Delivery Method Room Air Oxygen Flow Rate 0 0 Fraction of Inspired Oxygen 21 SaO2/FiO2 Ratio 461 Oxygen Delivery Method Room Air Oxygen Flow Rate 0 Objective Labs 11/24/24 04:22 11/24/24 04:22 [facility] Medical History Ribs, multiple fractures COPD (chronic obstructive pulmonary disease) Non-Hodgkin lymphoma Adult celiac disease COVID Mixed connective tissue disease Social History household members: family and children Smoking Status: Never smoker alcohol intake: never substance use type: does not use Assessment & Plan Time-Based Coding :: [TOTAL MINUTES] spent with patient and on the chart (including review of chart, obtaining history, exam, reviewing outside data, placing orders, documenting exam and treatment plan, and counseling patient) on [DATE].
[2024-11-25] MEDS: MIRTAZAPINE 15 MG TABLET PO (20:13)
[2024-11-25] MEDS: MONTELUKAST 10 MG TABLET PO (20:13)
[2024-11-25] MEDS: cefTRIAXone 1,000 MG in SODIUM CHLORIDE 0.9% 100 ML 200 MG IV (20:13)
[2024-11-25] MEDS: AZITHROMYCIN 500 MG in DEXTROSE 5% IN WATER 250 ML 250 MG IV (20:15)
[2024-11-26] VITALS (8 sets, daily range): BP systolic 115–126; BP diastolic 61–75; PULSE 82–89; RESP 16; TEMP 36.3; O2SAT 94–100
[2024-11-26] MEDS: PANTOPRAZOLE DR 20 MG TABLET PO (05:19)
[2024-11-26] MEDS: ACETAMINOPHEN 325 MG TABLET 650 MG PO (05:19)
--- NOTE | 2024-11-26 07:35 | P.DS_ITS ---
History of Present Illness History of Present Illness Date Patient Seen: 11/26/24 Chief complaint: sent Pulmonary, fever, coughing, had flu A Narrative: Chief complaint: Community-acquired pneumonia with productive cough fever history of a influenza a exacerbation of COPD History of present illness: 74F with PMH of COPD, celiac disease, MCTD, HTN had Flu A last week. Was placed on Tamiflu which she finished yesterday. She was feeling improved but then last night and today, developed dyspnea, productive cough, fever, and weakness. No dizziness, focal weakness, presyncope. Initial vitals showed minimal fever and tachycardia to 110s. CXR showed RLL pneumonia. She was given antibiotics, steroids, and neb treatments with improvement in respiratory status and tachycardia. She still is coughing occasionally. Hospital course: 11/24: Patient having productive cough but is already in the improvement in her symptoms Review of systems: No loss of consciousness new line no chest pain No nausea vomiting diarrhea No urinary symptoms Physical exam: No acute distress on room air HEENT unremarkable new line neck no JVD Heart rate and rhythm regular Lungs lungs with diffuse wheezes new lines abdomen benign Extremities no edema new Assessment and plan: Discharge home Community acquired pneumonia and COPD exacerbation 5 days of cefdinir at home Seven days oral prednisone Bronchodilators new line incentive spirometry and flutter valve DVT prophylaxis SCDs The 35 minutes spent in evaluation of this patient Discharge Providers Provider Date of admission: 11/23/24 21:56 Discharge Date: 11/26/24 Primary care physician: Korina Cobb MD Discharge provider: Aneudy Persaud MD Exam Vital Signs (past 8 hours): - 11/26/24 04:00 Temperature 97.4 F L Pulse Rate 82 Respiratory Rate 16 Blood Pressure 126/75 Pulse Oximetry 96 Oxygen Flow Rate 0 Fraction of Inspired Oxygen 21 SaO2/FiO2 Ratio 461 Oxygen Delivery Method Room Air Oxygen Flow Rate 0 Objective Labs 11/24/24 04:22 11/24/24 04:22 [facility] Medical History Ribs, multiple fractures COPD (chronic obstructive pulmonary disease) Non-Hodgkin lymphoma Adult celiac disease COVID Mixed connective tissue disease Social History household members: family and children Smoking Status: Never smoker alcohol intake: never substance use type: does not use Discharge Plan Discharge orders & Medications Discharge Orders: Discharge (Order); Ordered 11/26/24 Ordered By: Aneudy Persaud Prescriptions: New prednisone 20 mg tablet 20 mg PO DAILY Qty: 7 0RF benzonatate 200 mg capsule 200 mg PO TID Qty: 30 0RF albuterol sulfate 90 mcg/actuation HFA aerosol inhaler 2 puff inhalation Q6H PRN (Reason: shortness of breath or wheezing) Qty: 8.5 3RF Continued hydroxychloroquine 200 mg tablet 300 mg PO DAILY losartan 50 mg tablet 75 mg PO QPM mirtazapine 15 mg tablet 15 mg PO ONCE PM paroxetine HCl 20 mg tablet 20 mg PO DAILY montelukast 10 mg tablet 10 mg PO QPM fluticasone propion-salmeterol 250-50 mcg/dose blister with device 1 ea inhalation BID benzonatate 200 mg capsule 200 mg PO BID PRN (Reason: cough) Qty: 28 0RF Discontinued benzonatate 100 mg Capsule 100 mg PO TID PRN (Reason: Cough) Qty: 60 0RF prednisone 20 mg Tablet 40 mg PO DAILY Qty: 20 0RF Patient Comments: Takes PRN albuterol sulfate [ProAir HFA] 90 mcg/actuation HFA aerosol inhaler 2 puff inhalation Q6H PRN (Reason: shortness of breath or wheezing) Qty: 8.5 3RF Follow up/Referrals: Korina Cobb MD [Primary Care Provider] - Visit Report/Discharge Packet Stand Alone Forms: Patient Portal/API, Stroke Signs & Symptoms Discharge Data Primary Care Provider: Korina Cobb Attending Provider: Aneudy Persaud Admit Date/Time: 11/23/24 21:56
[2024-11-26] MEDS: BUDESONIDE 0.5 MG/2 ML NEB INH (07:48)
[2024-11-26] MEDS: ALBUTEROL 2.5 MG/3 ML NEB (ADULT) INH (07:48)
[2024-11-26] MEDS: PARoxetine 20 MG TABLET PO (08:03)
[2024-11-26] MEDS: methylPREDNISolone 125 MG/2 ML VIAL 62.5 MG IV (08:03)
[2024-11-26] MEDS: SODIUM CHLORIDE 0.9% FLUSH 10 ML IV (08:10)
--- NOTE | 2024-11-26 15:04 | CM.DPC ---
DCP Discharge Home Per MD, pt is medically stable to discharge the hospital today with outpt follow up and no identified barriers to discharge. Per Rn, discharge instructions provided and no concerns noted and pt taken down to son's POV. SARAH Law
== END 2024-11-26 11:34 | disposition home or self-care (01) ==
LOC: ED 21:58 → AC 21:58 → ICU 23:18
PROVIDERS: Emergency Medicine; Admitting Provider Internal Medicine; Emergency Provider Family Medicine; PCP Family Medicine; Referring Provider Family Medicine; Visit Provider Internal Medicine
DX: J10.00 Influenza due to other identified influenza virus with unspecified type of pneumonia (principal); R06.02 Shortness of breath; I10 Essential (primary) hypertension; J44.1 Chronic obstructive pulmonary disease with (acute) exacerbation
CPT/HCPCS: 0241U; 36415; 71045; 80048; 80053; 83605; 83735; 83880; 84145; 84484; 85025; 85610; 87040; 87797; 93005; 94150; 94640; 94667; 96365; 96366; 96367; 96368; 96375; 96376; 99284; G0378; J0696; J2919; J7613